=== PATIENT | female | born 1975 | race Caucasian/White ===

== ENCOUNTER → 2018-04-21 13:07 | Outpatient (POV) | payer BC, SELFPAY | PROVIDERS: Visit Provider Dermatology | DX: Z00.00 Encounter for general adult medical examination without abnormal findings (principal) ==

== ENCOUNTER → 2019-05-08 15:45 | Outpatient (CLI) | payer BC, SELFPAY ==
--- NOTE | 2019-05-08 15:53 | MM_ITS ---
PROCEDURE: MM DIG SCREENING MAMM BI W/CAD CLINICAL INDICATION: Routine Screening Mammogram baseline There is no personal or family history of breast cancer COMPARISON: No exams were available for comparison TECHNIQUE: Standard CC and MLO images were obtained. R2 CAD reviewed. FINDINGS: Moderate diffuse fibroglandular densities are seen in central portions of both breast. There is a possible asymmetric density deep within the left breast only definitely seen on the MLO view. Recommend patient return for spot compression MLO view and 90 degree view and spot compression CC view the central portion the breast there are no suspicious microcalcifications. IMPRESSION: Moderate breast density with possible asymmetric density deep within the left breast BI-RAD Category: 0 Need Additional Imaging Evaluation FOLLOW-UP: IMM Immediate Follow-up Recommended (A letter has been sent to the patient regarding results of the study.) Dictated by: Dr. Dudley Vasquez MD 05/10/2019 10:03 Signed by: <Electronically signed by Dr. Dudley Vasquez MD in [place]> 05/10/2019 10:03
== END ==
PROVIDERS: Visit Provider Nurse Practitioner Obstetrics & Gynecology
DX: Z12.31 Encounter for screening mammogram for malignant neoplasm of breast (principal)
CPT/HCPCS: 77067

== ENCOUNTER → 2019-05-16 13:25 | Outpatient (POV) | payer BC, SELFPAY | PROVIDERS: Visit Provider Dermatology | DX: Z00.00 Encounter for general adult medical examination without abnormal findings (principal) ==

== ENCOUNTER → 2019-05-17 12:54 | Outpatient (CLI) | payer BC, SELFPAY ==
--- NOTE | 2019-05-17 | US_ITS ---
This report is currently processing and should be available to review shortly.
--- NOTE | 2019-05-17 12:55 | MM_ITS ---
PROCEDURE: MM DIG MAMM DX UNILAT LT CAD CLINICAL INDICATION: Dx Mammogram- Left Breast Abnormal Mamm COMPARISON: MM DIG SCREENING MAMM BI W/CAD from 05/08/2019 US BREAST LT COMPLETE from 05/17/2019 TECHNIQUE: Problem solving views of the left breast along with left breast ultrasound FINDINGS: Average to dense fibroglandular tissue. On the spot compression MLO view there was a persistent asymmetric area of increased density which appeared less apparent on the focal spot compression view. The regional asymmetric density in the deep central left breast was less apparent on the spot view with some increased asymmetry slightly lateral to this area which may be due to overlying fibroglandular tissue. This area is difficult to image due to the deep location. Left breast ultrasound: 6 mm hypoechoic area at 3 o'clock near the nipple nonspecific may be due to fibroglandular tissue. No suspicious nodules are evident. IMPRESSION: Areas of asymmetry are probably benign. It is somewhat difficult images these areas due to the deep location. No sonographic abnormalities apparent. Recommend six-month follow-up BI-RAD Category: 3 Probably Benign Finding Short Term Follow-up FOLLOW-UP: 6M 6Month Follow-up the (A letter has been sent to the patient regarding results of the study.) Dictated by: Phil Toscano MD 05/19/2019 13:44 Signed by: <Electronically signed by Phil Toscano MD in [place]> 05/19/2019 13:48
== END ==
PROVIDERS: PCP Family Medicine; Visit Provider Nurse Practitioner Obstetrics & Gynecology
DX: R92.8 Other abnormal and inconclusive findings on diagnostic imaging of breast (principal)
CPT/HCPCS: 76641; 77065

== ENCOUNTER → 2020-07-08 07:54 | Outpatient (CLI) | payer BC, SELFPAY ==
--- NOTE | 2020-07-08 07:58 | MM_ITS ---
PROCEDURE: MM DIG SCREENING MAMM BI W/CAD Digital Breast Tomosynthesis Included CLINICAL INDICATION: screening xmg There is no personal or family history of breast cancer. COMPARISON: MG MM DIG SCREENING MAMM BI W/CAD from 05/08/2019 MG MM DIG MAMM DX UNILAT LT CAD from 05/17/2019 TECHNIQUE: Standard CC and MLO images and 3D Tomosynthesis was obtained. R2 CAD reviewed. FINDINGS: Moderate fibroglandular densities are seen in the central portions of both breasts. Findings are bilateral and symmetrical. There is no new or suspicious lesion in either breast and no suspicious microcalcifications. IMPRESSION: Fibrofatty parenchyma with no suspicious lesions seen BI-RAD Category: 1 Negative FOLLOW-UP: 1YR 1 Year Follow-up (A letter has been sent to the patient regarding results of the study.) Dictated by: Dr. Dudley Vasquez MD 07/08/2020 12:11 Dr. Dudley Vasquez MD in [place] 07/08/2020 12:11
== END ==
PROVIDERS: PCP Family Medicine; Visit Provider Nurse Practitioner Obstetrics & Gynecology
DX: Z12.31 Encounter for screening mammogram for malignant neoplasm of breast (principal)
CPT/HCPCS: 77063; 77067

== ENCOUNTER → 2020-07-09 13:10 | Outpatient (POV) | payer BC, SELFPAY | PROVIDERS: Visit Provider Dermatology | DX: Z00.00 Encounter for general adult medical examination without abnormal findings (principal) ==

== ENCOUNTER → 2020-07-15 08:59 | Outpatient (CLI) | payer BC, SELFPAY ==
--- NOTE | 2020-07-15 09:02 | US_ITS ---
APPROVED REPORT Exam Type: Lower Extremity Segmental Pressures Paying Teller: Padmini Niño RDCS Indications Numbness/Tingling Current Smoker History of Smoking Pressures/Indices Right Indices Left Indices Brachial 111.00 mmHg Brachial 114.00 mmHg Low Thigh 130.00 mmHg 1.14 Low Thigh 129.00 mmHg 1.13 Calf 121.00 mmHg 1.06 Calf 135.00 mmHg 1.18 Ankle(PT) 117.00 mmHg 1.03 Ankle(PT) 141.00 mmHg 1.24 Ankle(DP) 113.00 mmHg 0.99 Ankle(DP) 118.00 mmHg 1.04 Digit 73.00 mmHg 0.64 Digit 80.00 mmHg 0.70 Findings NORMAL WAVEFORMS NORMAL PULSES R RYNE 1.0 L RYNE 1.2 R TBI .6 L TBI .7 Conclusion NORMAL WAVEFORMS NORMAL PULSES R RYNE 1.0 L RYNE 1.2 R TBI .6 L TBI .7 Normal appearing resting noninvasive lower extremity arterial study. Electronically signed by : Phil Toscano MD 07/15/2020 13:40:10
== END ==
PROVIDERS: PCP Family Medicine; Visit Provider Nurse Practitioner Family
DX: I73.9 Peripheral vascular disease, unspecified (principal)
CPT/HCPCS: 93923

== ENCOUNTER 2020-09-26 20:03 | Emergency (ER) | payer BC, SELFPAY ==
[2020-09-26 20:03] VITALS: BP 128/89; PULSE 88; RESP 14; TEMP 36.8; O2SAT 98; BMI 22.3
--- NOTE | 2020-09-26 20:32 | HMH.EDUTC ---
[facility] [place] Clinical Impression: Exposure to COVID-19 virus, Viral syndrome Disposition: Home, Self-Care Condition on Discharge: Good Instructions: DI for COVID-19 (Suspected or Confirmed ), Preventing the Spread of Coronavirus Discharge Instructions Additional Instructions: *Monitor Temp, Over the counter Motrin or Tylenol as directed/as needed Tylenol every 4 hours and Motrin every 6 hours (as long as your family doctor has told you that you can take it) for fever or pain. and straight to ER if unable to lower temp less than 101.0 after medication given Follow up IMMEDIATELY for new or worsening symptoms or no Noticeable improvement over the next 48-72 hours. 911 for difficulty breathing or swallowing You were tested for today for COVID19 your test result should be back in the next 24-48 hours, you may call to the [facility] to see if your test results are back in the next 48 hours [phone] [facility] hours are 9am-9pm You was given a handout with instructions for Self Quarantine and Self isolation for while you wait on test results and what to do if they are positive If you are positive the Health Dept will be contacting you also Referrals: David Hopper MD [Primary Care Provider] - Time of Disposition: 20:35 Medical Decision Making - Medical Records Medical records reviewed: No: I reviewed the patient's medical records. - Ricco Inquiry Pt receiving controlled substance: No Vital Signs: 09/26/20 20:03 09/26/20 20:39 Temperature 98.3 F 98.3 F Temperature Source Oral Oral Pulse Rate 88 Pulse Rate [Right] 88 Respiratory Rate 14 14 Blood Pressure 128/89 Blood Pressure [Right Arm] 128/89 Blood Pressure Mean [Right Arm] 102 02 Sat by Pulse Oximetry 98 [facility] [place] HPI - General Stated complaint: Covid test Time Seen by Provider: 09/26/20 20:32 Description of Symptoms (Recalled from Triage Doc. by RN): pt request COVID test pt c/o of cough Tam HEENT Symptoms (Recalled from RN notes): No Resp Symptoms (Recalled from RN notes): Yes Skin Symptoms (Recalled from RN notes): No MS Symptoms (Recalled from RN notes): No Functional Status (Recalled from RN notes): wnl - History of Present Illness Provider Complaint: Her son has been diagnosed with covid-19 2 days ago. She states that since this morning she has felt very fatigued and had a low grade fever. - Related Data Home Medications Medication Instructions Recorded Confirmed atorvastatin 80 mg tablet 80 mg PO tab 08/12/20 08/12/20 multivitamin 1 cap PO DAILY 08/12/20 08/12/20 sertraline 50 mg tablet 50 mg PO tab 08/12/20 08/12/20 temazepam 15 mg capsule 15 mg PO cap 08/12/20 08/12/20 ustekinumab 45 mg/0.5 mL mg SQ 08/12/20 08/12/20 subcutaneous syringe Allergies Allergy/AdvReac Type Severity Reaction Status Date / Time No Known Allergies Allergy Verified 08/12/20 09:55 - Worker's Comp Is this a Worker's Comp case?: No Is this an [place] Worker's Comp?: No Is this a [place] Worker's Comp?: No [facility] History - Hepatitis A Screen Drug use history?: No High risk sexual behaviors?: No History of sexually transmitted infection?: No Currently employed?: No Childcare worker?: No Do you have indoor plumbing?: Yes Do you have electricity?: Yes Attestation statement:: This patient has been screened for Hepatitis A risk factors. 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
[2020-09-26 20:39] VITALS: BP 128/89; PULSE 88; RESP 14; TEMP 36.8
== END 2020-09-26 20:39 | disposition home or self-care (01) ==
PROVIDERS: Emergency Provider Nurse Practitioner Family; PCP Family Medicine
DX: Z20.822 Contact with and (suspected) exposure to COVID-19 (principal); B34.9 Viral infection, unspecified; J45.909 Unspecified asthma, uncomplicated; E78.5 Hyperlipidemia, unspecified; F17.210 Nicotine dependence, cigarettes, uncomplicated; Z79.899 Other long term (current) drug therapy
CPT/HCPCS: 99202; G0463; U0003

== ENCOUNTER → 2021-06-30 11:59 | Outpatient (CLI) | payer BC, SELFPAY | PROVIDERS: PCP Family Medicine; Visit Provider Nurse Practitioner | DX: Z20.822 Contact with and (suspected) exposure to COVID-19 (principal); U07.1 COVID-19 | CPT/HCPCS: C9803; U0003; U0005 ==

== ENCOUNTER → 2021-09-15 09:42 | Outpatient (CLI) | payer BC, SELFPAY | PROVIDERS: PCP Family Medicine; Visit Provider Nurse Practitioner | DX: Z20.822 Contact with and (suspected) exposure to COVID-19 (principal) | CPT/HCPCS: C9803; U0003; U0005 ==

== ENCOUNTER → 2021-12-30 15:57 | Outpatient (POV) | payer BC, SELFPAY | PROVIDERS: Visit Provider Dermatology | DX: Z00.00 Encounter for general adult medical examination without abnormal findings (principal) ==

== ENCOUNTER 2022-04-02 08:42 | Emergency (ER) | payer BC, SELFPAY ==
[2022-04-02] VITALS (7 sets, daily range): BP systolic 99–120; BP diastolic 60–84; PULSE 76–94; RESP 16–18; TEMP 36.6–36.8; O2SAT 94–98; BMI 22.8
--- NOTE | 2022-04-02 08:51 | PC.NURSE ---
JOE BASS at
--- NOTE | 2022-04-02 08:54 | CT_ITS ---
FINAL REPORT TECHNIQUE: Axial CT images were performed through the head. Coronal reformatted images were submitted. This study was performed with techniques to keep radiation doses as low as reasonably achievable (ALARA). Individualized dose reduction techniques using automated exposure control or adjustment of mA and/or kV according to the patient's size were employed. CLINICAL HISTORY: Fall, CHI, +LOC FINDINGS: The ventricles are normal in size. There is no evidence of hemorrhage. There is no mass or edema identified. There is no abnormal extra-axial fluid seen. There is mild mucoperiosteal thickening in the left maxillary sinus. There is no acute osseous abnormality. IMPRESSION: No acute intracranial process. Reviewed, Interpreted and Dictated by Didier Rose MD Transcribed by Pedro Fisher Authenticated and [facility]
--- NOTE | 2022-04-02 08:55 | HMH.EDFALL ---
ED Disposition Clinical Impression: Concussion with loss of consciousness Qualifiers: Encounter type: initial encounter Qualified Code(s): S06.0X9A - Concussion with loss of consciousness of unspecified duration, initial encounter Disposition: Home, Self-Care Condition on Discharge: Good Instructions: DI for Concussion, Ondansetron, Ibuprofen Referrals: Lukasz Alvarado MD [Primary Care Provider] - Time of Disposition: 10:32 - Critical Care Critical Care Time: No Attestation: On , the high probability of a clinically significant, sudden or life threatening deterioration of the following system(s) required my full and direct attention, intervention and personal management. The time I documented below is in addition to time spent performing reported procedures but includes the following listed in this critical care notation. Medical Decision Making - Medical Records Medical records reviewed: Yes: I reviewed the patient's medical records. - Ricco Inquiry Pt receiving controlled substance: No Vital Signs: 04/02/22 08:43 04/02/22 09:00 04/02/22 09:11 Temperature 98.2 F Temperature Source Oral Pulse Rate 87 86 Pulse Rate [Right Radial] 94 H Respiratory Rate 18 Blood Pressure 113/77 117/76 Blood Pressure [Right Arm] 120/78 Blood Pressure Mean 86 84 Blood Pressure Mean [Right Arm] 92 Blood Pressure Source [Right Arm] Automatic Cuff Blood Pressure Position [Right Arm] Sitting 02 Sat by Pulse Oximetry 95 95 96 Oxygen Delivery Method Room Air 04/02/22 09:30 Temperature Temperature Source Pulse Rate 76 Pulse Rate [Right Radial] Respiratory Rate Blood Pressure 101/68 L Blood Pressure [Right Arm] Blood Pressure Mean 74 Blood Pressure Mean [Right Arm] Blood Pressure Source [Right Arm] Blood Pressure Position [Right Arm] 02 Sat by Pulse Oximetry 94 L Oxygen Delivery Method - Lab Data Lab results reviewed: Yes: I reviewed the patient's lab results. Lab Results 04/02/22 08:53: WBC 6.0, RBC 5.10, Hgb 15.1, Hct 46.4, MCV 91.0, MCH 29.6, MCHC 32.5, RDW 13.5, Plt Count 333, MPV 8.2, Neut % (Auto) 55.3, Lymph % (Auto) 33.6, [place] % (Auto) 7.1, Eos % (Auto) 2.9, Baso % (Auto) 1.1, Neut # (Auto) 3.3, Lymph # (Auto) 2.0, [place] # (Auto) 0.4, Eos # (Auto) 0.2, Baso # (Auto) 0.1 04/02/22 08:53: Sodium 137, Potassium 3.9, Chloride 103, Carbon Dioxide 31 H, Anion Gap 6.9, BUN 7, Creatinine 0.60, Estimated Creat Clear 114, Estimated GFR 107, Est GFR ( Amer) 130, Glucose 102 H, Calcium 9.2, Total Bilirubin 0.2, AST 32, ALT 30, Alkaline Phosphatase 143 H, Total Protein 7.0, Albumin 4.0, Globulin 3.0, Albumin/Globulin Ratio 1.3 04/02/22 08:53: Serum HCG, Qual Negative Result diagrams: 04/02/22 08:53 04/02/22 08:53 Orders (Tests/Meds): ED MEDICATIONS Discontinued Medications Generic Name Dose Route Start Last Admin Trade Name Freq PRN Reason Stop Dose Admin Ondansetron HCl 4 mg 04/02/22 08:54 04/02/22 09:18 Ondansetron 4mg Odt SL 04/02/22 08:55 Not Given ONCE ONE Ondansetron HCl 4 mg 04/02/22 09:03 04/02/22 09:06 Ondansetron 4mg/2ml Vial IV 04/02/22 09:04 4 mg ONCE ONE Administration - Reevaluation(s) Time: 10:31 (no acute findings on imaging, clinical picture c/w mild concussion) Fall HPI - General Chief Complaint: Fall Stated Complaint: ao fall 04/02, head pain Time Seen by Provider: 04/02/22 08:50 Mode of Arrival: Ambulatory Source of Information: Patient Limitations: No Limitations - History of Present Illness HPI Narrative: 46-year-old female, no history of prior head trauma, not on anticoagulant, no known bleeding diatheses, presents status post mechanical fall where she tripped and fell in her bathroom, fell backwards struck the back of her head with positive loss of consciousness for unknown amount of time. She awoke spontaneously, event occurred just prior to arrival, she was ambulatory into the emergency department. She does repor
--- NOTE | 2022-04-02 08:56 | PC.NURSE ---
notified rad of CT orders, spoke with Schuyler
[2022-04-02 09:05] LABS: Basophils # 0.1 K/mm3 (0-0.2); Basophils % 1.1 % (0.1-2.0); Eosinophils # 0.2 K/mm3 (0.0-0.4); Eosinophils % 2.9 % (0.1-12.0); Hematocrit 46.4 % (37.0-47.0); Hemoglobin 15.1 g/dL (12.2-16.2); Lymphocytes % 33.6 % (10-50); Mean Corpuscular HGB Conc 32.5 g/dL (31.8-35.4); Mean Corpuscular Hemoglobin 29.6 pg (27.0-31.2); Mean Platelet Volume 8.2 fl (7.4-10.4); Monocytes # 0.4 K/mm3 (0.1-1.0); Monocytes % 7.1 % (1.7-9.3); Neutrophils # 3.3 K/mm3 (1.8-7.8); Neutrophils % 55.3 % (37.0-80.0); Platelet Count 333 K/mm3 (142-424); Red Cell Distribution Width 13.5 % (11.5-17.5)
--- NOTE | 2022-04-02 09:06 | PC.NURSE ---
pt to CT via wheelchair, pt medicated for nausea prior to CT, pt began more nauseated when she tried to get up from the stretcher.
[2022-04-02 09:10] LABS: Alanine Aminotransferase 30 U/L (12-78); Albumin/Globulin Ratio 1.3 (1.1-1.8); Alkaline Phosphatase 143 U/L (38-126); Anion Gap 6.9 mEq/L (5-15); Aspartate Amino Transferase 32 U/L (14-36); Bilirubin,Total 0.2 mg/dl (0.2-1.3); Blood Urea Nitrogen 7 mg/dl (7-17); Calcium 9.2 mg/dl (8.4-10.2); Carbon Dioxide 31 mmol/L (22.0-30.0); Chloride 103 mmol/L (98-107); Creatinine Clearance Estimated 114 mL/min (50-200); Estimated Glomerular Filt Rate 107 ml/min (>60); GFR (African American) 130 ML/MIN (>60); Glucose 102 mg/dl (74-100); Potassium 3.9 mmoL/L (3.5-5.1); Sodium 137 mmol/L (136-145)
--- NOTE | 2022-04-02 09:20 | PC.NURSE ---
Pt returned from CT
--- NOTE | 2022-04-02 09:20 | PC.NURSE ---
family at the bedside
[2022-04-02 09:35] LABS: HCG Qualitative, Serum Negative (Negative)
--- NOTE | 2022-04-02 09:36 | PC.NURSE ---
checked on pt at this time, pt laying on her side at this time, states no needs at this time. Pt offered blanket, pt declined. Pt at bs, will continue to monitor
== END 2022-04-02 11:06 | disposition home or self-care (01) ==
PROVIDERS: Emergency Provider Emergency Medicine; PCP Family Medicine
DX: S06.0X9A Concussion with loss of consciousness of unspecified duration, initial encounter (principal); W01.0XXA Fall on same level from slipping, tripping and stumbling without subsequent striking against object, initial encounter; Y92.012 Bathroom of single-family (private) house as the place of occurrence of the external cause
CPT/HCPCS: 70450; 80053; 84703; 85025; 96374; 99284; J2405

== ENCOUNTER → 2022-05-11 12:55 | Outpatient (CLI) | payer BC, SELFPAY ==
[2022-05-14 18:09] LABS: QuantiFERON-TB Gold Plus Negative (Negative)
== END ==
PROVIDERS: PCP Family Medicine; Visit Provider Dermatology
DX: L40.0 Psoriasis vulgaris (principal); Z79.899 Other long term (current) drug therapy
CPT/HCPCS: 36415; 86480

== ENCOUNTER → 2022-09-23 10:47 | Outpatient (CLI) | payer BC, SELFPAY ==
[2022-09-23 12:39] LABS: Adenovirus,PCR Not Detected (NotDetected); Bordetella Pertussis Not Detected (NotDetected); Chlamydophila Pneumoniae, PCR Not Detected (NotDetected); Coronavirus 19, PCR Not Detected (NotDetected); Coronavirus 229E Not Detected (NotDetected); Coronavirus NL63 Not Detected (NotDetected); Coronavirus OC43 Not Detected (NotDetected); Coronovirus HKU1,PCR Not Detected (NotDetected); Human Metapneumovirus Not Detected (NotDetected); Influenza A, PCR Not Detected (NotDetected); Influenza AH1, 2009 Not Detected (NotDetected); Influenza AH1, PCR Not Detected (NotDetected); Influenza AH3,PCR Not Detected (NotDetected); Influenza B, PCR Not Detected (NotDetected); Mycoplasma Pneumoniae, PCR Not Detected (NotDetected); Parainfluenza 1, PCR Not Detected (NotDetected); Parainfluenza 2, PCR Not Detected (NotDetected); Parainfluenza 3, PCR Not Detected (NotDetected); Parainfluenza 4, PCR Not Detected (NotDetected); Respiratory Syncytial Virus Not Detected (NotDetected); Rhinovirus/Enterovirus Not Detected (NotDetected)
== END ==
PROVIDERS: PCP Family Medicine; Visit Provider Family Medicine
DX: J06.9 Acute upper respiratory infection, unspecified (principal); R05.9 Cough, unspecified
CPT/HCPCS: 87581; 87632; 87798; C9803; U0003; U0005

== ENCOUNTER → 2022-09-23 11:02 | Outpatient (CLI) | payer BC, SELFPAY ==
--- NOTE | 2022-09-23 11:08 | XR_ITS ---
FINAL REPORT CLINICAL HISTORY: Cough COMPARISON: None FINDINGS: Two views of the chest show lungs to be clear. Pulmonary vascularity is normal. Heart and mediastinum are unremarkable. No pleural effusion is present. IMPRESSION: No active disease. Reviewed, Interpreted and Dictated by Juancho Kent MD Transcribed by Vanessa Hernandez Authenticated and [facility]
== END ==
PROVIDERS: PCP Family Medicine; Visit Provider Family Medicine
DX: R05.9 Cough, unspecified (principal)
CPT/HCPCS: 71046

== ENCOUNTER → 2022-10-05 16:21 | Outpatient (CLI) | payer BC, SELFPAY ==
--- NOTE | 2022-10-05 16:22 | MM_ITS ---
PROCEDURE INFORMATION: Exam: MG Bilateral Screening 3D Mammography Exam date and time: 10/05/2022 4:12 PM Age: 46 years old Clinical indication: Screening examination TECHNIQUE: Imaging protocol: Bilateral Screening tomosynthesis and 2D mammography including computer-aided detection (CAD) when performed. COMPARISON: 1. MG MM DIG SCREENING MAMM BI W/CAD 07/08/2020 8:08 AM 2. MG MM DIG MAMM DX UNILAT LT CAD 05/17/2019 1:12 PM FINDINGS: MAMMOGRAPHY: Breast composition: The breasts are heterogeneously dense, which may obscure small masses. Mass: None. Architectural distortion: None. Calcifications: No suspicious calcifications. Asymmetric density: None. Skin thickening: None. Axillary adenopathy: None. IMPRESSION: No mammographic evidence of malignancy. Annual screening is recommended unless otherwise clinically indicated. ASSESSMENT: BI-RADS Category 1: Negative
== END ==
PROVIDERS: PCP Family Medicine; Visit Provider Family Medicine
DX: Z12.31 Encounter for screening mammogram for malignant neoplasm of breast (principal)
CPT/HCPCS: 77063; 77067

== ENCOUNTER → 2022-12-25 14:31 | Outpatient (POV) | payer BC, SELFPAY | PROVIDERS: Visit Provider Dermatology | DX: Z00.00 Encounter for general adult medical examination without abnormal findings (principal) ==

== ENCOUNTER → 2023-01-26 14:57 | Outpatient (POV) | payer BC, SELFPAY | PROVIDERS: Visit Provider Dermatology | DX: Z00.00 Encounter for general adult medical examination without abnormal findings (principal) ==

== ENCOUNTER → 2023-02-22 08:38 | Outpatient (CLI) | payer BC, SELFPAY ==
--- NOTE | 2023-02-22 08:41 | MR_ITS ---
FINAL REPORT TECHNIQUE: Multiplanar and multisequence imaging of the brain was obtained before and after contrast administration. CLINICAL HISTORY: encephalopathy. MEMORY LOSS FINDINGS: The gyri and sulci are within normal limits for age. There is no mass effect or midline shift. Signal intensity is normal. No hydrocephalus. The cerebellum and brainstem have an unremarkable appearance. There are no areas of restricted diffusion on diffusion weighted images to suggest acute infarct. Soft tissues are without acute abnormality. No pathologic contrast enhancement is identified. IMPRESSION: No acute intracranial abnormality and no pathologic contrast enhancement. Reviewed, Interpreted and Dictated by Yasmin Pierre MD Transcribed by Ruth Trotter Authenticated and [facility]
== END ==
PROVIDERS: PCP Family Medicine; Visit Provider Nurse Practitioner Family
DX: G93.40 Encephalopathy, unspecified (principal); F41.8 Other specified anxiety disorders; G25.81 Restless legs syndrome; G47.00 Insomnia, unspecified; R29.2 Abnormal reflex; R53.83 Other fatigue; R73.9 Hyperglycemia, unspecified; R06.83 Snoring; Z72.0 Tobacco use
CPT/HCPCS: 70553; A9576

== ENCOUNTER → 2023-03-04 13:06 | Outpatient (CLI) | payer BC, SELFPAY | PROVIDERS: PCP Nurse Practitioner Family; Visit Provider Nurse Practitioner Family | DX: G47.33 Obstructive sleep apnea (adult) (pediatric) (principal); R06.83 Snoring; G25.81 Restless legs syndrome; G47.00 Insomnia, unspecified; R53.83 Other fatigue | CPT/HCPCS: G0399 ==

== ENCOUNTER → 2023-03-17 10:29 | Outpatient (CLI) | payer BC, SELFPAY ==
--- NOTE | 2023-03-17 10:37 | XR_ITS ---
FINAL REPORT CLINICAL HISTORY: Tobacco abuse, cognitive complaints FINDINGS: TWO VIEW CHEST The heart size is normal. The mediastinum is normal. The lungs are clear. There is no pneumothorax. IMPRESSION: No acute cardiopulmonary process. Reviewed, Interpreted and Dictated by John Guthrie III, MD Transcribed by Vonnie Christensen Authenticated and [facility]
[2023-03-17 11:36] LABS: Basophils % 0.6 % (0.1-2.0); Eosinophils # 0.2 K/mm3 (0.0-0.4); Eosinophils % 2.7 % (0.1-12.0); Hematocrit 45.6 % (37.0-47.0); Hemoglobin 14.8 g/dL (12.2-16.2); Lymphocytes # 2.3 K/mm3 (0.7-4.5); Lymphocytes % 36.7 % (10-50); Mean Corpuscular HGB Conc 32.4 g/dL (31.8-35.4); Mean Corpuscular Hemoglobin 28.4 pg (27.0-31.2); Mean Corpuscular Volume 87.8 fl (81-99); Mean Platelet Volume 9.1 fl (7.4-10.4); Monocytes # 0.4 K/mm3 (0.1-1.0); Monocytes % 5.8 % (1.7-9.3); Neutrophils # 3.4 K/mm3 (1.8-7.8); Neutrophils % 54.2 % (37.0-80.0); Platelet Count 309 K/mm3 (142-424); Red Cell Distribution Width 13.1 % (11.5-17.5); White Blood Count 6.3 K/mm3 (4.8-10.8)
[2023-03-17 11:43] LABS: Hemoglobin A1C 5.5 % (4.0-6.0)
[2023-03-17 12:34] LABS: Chloride 100 mmol/L (98-107); Potassium 3.9 mmoL/L (3.5-5.1); Sodium 140 mmol/L (136-145)
[2023-03-17 12:36] LABS: Blood Urea Nitrogen 6 mg/dl (7-17); Estimated Glomerular Filt Rate 89 ml/min (>60); GFR (African American) 108 ML/MIN (>60)
[2023-03-17 12:37] LABS: Alanine Aminotransferase 30 U/L (12-78); Albumin Level 4.2 g/dl (3.5-5.0); Albumin/Globulin Ratio 1.5 (1.1-1.8); Alkaline Phosphatase 133 U/L (38-126); Anion Gap 10.9 mEq/L (5-15); Aspartate Amino Transferase 37 U/L (14-36); Bilirubin,Total 0.3 mg/dl (0.2-1.3); Calcium 9.1 mg/dl (8.4-10.2); Carbon Dioxide 33 mmol/L (22.0-30.0); Globulin 2.8 g/dL (1.3-3.2); Glucose 73 mg/dl (74-100)
[2023-03-17 13:11] LABS: Ferritin 25.9 ng/ml (6.24-137)
[2023-03-17 13:33] LABS: Thyroid Stimulating Hormone 5.65 uIU/mL (0.465-4.68)
[2023-03-17 14:08] LABS: Vitamin B12 411 pg/mL (239-931)
[2023-03-17 14:11] LABS: Folate 6.06 ng/mL
[2023-03-18 11:24] LABS: Rapid Plasma Reagin Ab Titer Non Reactive (NonRea<1:1)
[2023-03-20 17:33] LABS: Vitamin B1 112.3 nmol/L (66.5-200.0)
[2023-03-23 12:56] LABS: Free Thyroxine Index 2.4 ug/dL (5.93-13.13); T4 (Thyroxine) 8.3 ug/dl (5.53-11.0); Triiodothryronine (T3) Uptake 29 % (23.5-40.5)
[2023-03-23 14:48] LABS: Thyroid Stimulating Hormone 5.58 uIU/mL (0.465-4.68)
[2023-04-08 00:12] LABS: Antinuclear Antibodies (ANA) Negative
== END ==
LOC: LAB 10:30
PROVIDERS: PCP Nurse Practitioner Family; Visit Provider Nurse Practitioner Family
DX: G93.40 Encephalopathy, unspecified (principal); R73.9 Hyperglycemia, unspecified; F41.8 Other specified anxiety disorders; R29.2 Abnormal reflex; R53.83 Other fatigue; G25.81 Restless legs syndrome; G47.00 Insomnia, unspecified; R06.83 Snoring; Z72.0 Tobacco use
CPT/HCPCS: 36415; 71046; 80053; 82607; 82728; 82746; 83036; 84425; 84436; 84443; 84479; 85025; 86038; 86225; 86235; 86593

== ENCOUNTER → 2023-05-11 13:03 | Outpatient (POV) | payer BC, SELFPAY | PROVIDERS: Visit Provider Dermatology | DX: Z00.00 Encounter for general adult medical examination without abnormal findings (principal) ==

== ENCOUNTER → 2023-05-26 14:37 | Outpatient (CLI) | payer BC, SELFPAY ==
[2023-05-26 16:23] LABS: Chloride 100 mmol/L (98-107); Potassium 3.6 mmoL/L (3.5-5.1); Sodium 141 mmol/L (136-145)
[2023-05-26 16:25] LABS: Alanine Aminotransferase 160 U/L (12-78); Aspartate Amino Transferase 75 U/L (14-36); Blood Urea Nitrogen 8 mg/dl (7-17); Estimated Glomerular Filt Rate 77 ml/min (>60); GFR (African American) 93 ML/MIN (>60)
[2023-05-26 16:26] LABS: Albumin Level 3.9 g/dl (3.5-5.0); Albumin/Globulin Ratio 1.2 (1.1-1.8); Alkaline Phosphatase 162 U/L (38-126); Anion Gap 10.6 mEq/L (5-15); Bilirubin,Total 0.6 mg/dl (0.2-1.3); Calcium 9.7 mg/dl (8.4-10.2); Carbon Dioxide 34 mmol/L (22.0-30.0); Globulin 3.2 g/dL (1.3-3.2); Glucose 104 mg/dl (74-100); Total Protein,Serum 7.1 g/dl (6.3-8.2)
[2023-05-26 16:52] LABS: Basophils % 0.4 % (0.1-2.0); Eosinophils # 0.1 K/mm3 (0.0-0.4); Eosinophils % 0.9 % (0.1-12.0); Hematocrit 46.1 % (37.0-47.0); Hemoglobin 15.7 g/dL (12.2-16.2); Lymphocytes # 2.8 K/mm3 (0.7-4.5); Lymphocytes % 30.1 % (10-50); Mean Corpuscular Hemoglobin 29.2 pg (27.0-31.2); Mean Platelet Volume 10.3 fl (7.4-10.4); Monocytes # 0.6 K/mm3 (0.1-1.0); Monocytes % 6.2 % (1.7-9.3); Neutrophils # 5.8 K/mm3 (1.8-7.8); Neutrophils % 62.4 % (37.0-80.0); Platelet Count 318 K/mm3 (142-424); Red Blood Count 5.36 M/mm3 (4.20-5.40); Red Cell Distribution Width 13.6 % (11.5-17.5); White Blood Count 9.3 K/mm3 (4.8-10.8)
[2023-05-29 11:34] LABS: QuantiFERON-TB Gold Plus Negative (Negative)
[2023-05-31 12:01] LABS: Free T4 (Free Thyroxine) 1.33 ng/dl (0.78-2.19)
[2023-06-02 16:29] LABS: Alkaline Phosphatase 152 IU/L (44-121); Bone Fraction: 27 % (14-68); Intestinal Frac.: 0 % (0-18); Liver Fraction: 73 % (18-85)
== END ==
PROVIDERS: PCP Nurse Practitioner Family; Visit Provider Dermatology
DX: E03.9 Hypothyroidism, unspecified (principal); R74.8 Abnormal levels of other serum enzymes; E78.5 Hyperlipidemia, unspecified; F41.8 Other specified anxiety disorders
CPT/HCPCS: 36415; 80053; 84075; 84080; 84439; 84443; 85025; 86480

== ENCOUNTER 2023-06-06 18:51 | Emergency (ER) | payer BC, SELFPAY ==
[2023-06-06] VITALS (8 sets, daily range): BP systolic 131–164; BP diastolic 90–107; PULSE 75–99; RESP 17–19; TEMP 36.8–36.9; O2SAT 94–98; BMI 20.9
--- NOTE | 2023-06-06 | ECG_ITS ---
APPROVED REPORT Exam: Resting ECG HR:76 bpm ECG Measurements Heart Rate 76 AXES OH 142 P 73 QRSd 86 QRS 78 QT 374 T 67 QTc 405 Conclusion SINUS RHYTHM WITH SINUS ARRHYTHMIA NORMAL ECG UNCONFIRMED REPORT Electronically signed by : David Farfan MD 06/07/2023 20:19:03
--- NOTE | 2023-06-06 19:22 | ECG_ITS ---
APPROVED REPORT Exam: Resting ECG HR:111 bpm ECG Measurements Heart Rate 111 AXES PA 137 P 73 QRSd 88 QRS 78 QT 333 T 71 QTc 398 Conclusion SINUS TACHYCARDIA NONSPECIFIC ST & T-WAVE ABNORMALITY ABNORMAL RHYTHM ECG UNCONFIRMED REPORT Electronically signed by : David Farfan MD 06/07/2023 20:19:12
[2023-06-06 19:35] LABS: Basophils # 0.1 K/mm3 (0-0.2); Basophils % 0.7 % (0.1-2.0); Eosinophils # 0.1 K/mm3 (0.0-0.4); Eosinophils % 1.6 % (0.1-12.0); Hemoglobin 15.6 g/dL (12.2-16.2); Lymphocytes # 2.8 K/mm3 (0.7-4.5); Lymphocytes % 34.7 % (10-50); Mean Corpuscular HGB Conc 32.4 g/dL (31.8-35.4); Mean Corpuscular Hemoglobin 28.3 pg (27.0-31.2); Mean Corpuscular Volume 87.2 fl (81-99); Monocytes # 0.4 K/mm3 (0.1-1.0); Monocytes % 5.3 % (1.7-9.3); Neutrophils # 4.6 K/mm3 (1.8-7.8); Neutrophils % 57.7 % (37.0-80.0); Platelet Count 346 K/mm3 (142-424); Red Blood Count 5.51 M/mm3 (4.20-5.40); Red Cell Distribution Width 13.5 % (11.5-17.5)
[2023-06-06 19:37] LABS: Chloride 101 mmol/L (98-107); Potassium 3.2 mmoL/L (3.5-5.1); Sodium 140 mmol/L (136-145)
[2023-06-06 19:40] LABS: Alanine Aminotransferase 48 U/L (12-78); Albumin/Globulin Ratio 1.2 (1.1-1.8); Alkaline Phosphatase 135 U/L (38-126); Anion Gap 12.2 mEq/L (5-15); Aspartate Amino Transferase 52 U/L (14-36); Bilirubin,Total 0.4 mg/dl (0.2-1.3); Blood Urea Nitrogen 8 mg/dl (7-17); Carbon Dioxide 30 mmol/L (22.0-30.0); Creatinine Clearance Estimated 91 mL/min (50-200); Estimated Glomerular Filt Rate 89 ml/min (>60); GFR (African American) 108 ML/MIN (>60); Globulin 3.3 g/dL (1.3-3.2); Glucose 165 mg/dl (74-100); Total Protein,Serum 7.3 g/dl (6.3-8.2)
[2023-06-06 19:41] LABS: Magnesium 2.1 mg/dl (1.6-2.3)
--- NOTE | 2023-06-06 19:53 | XR_ITS ---
PROCEDURE INFORMATION: Exam: XR Chest Exam date and time: 06/06/2023 8:12 PM Age: 47 years old Clinical indication: Shortness of breath; Additional info: Dyspnea TECHNIQUE: Imaging protocol: Radiologic exam of the chest. Views: 1 view. COMPARISON: CR XR CHEST 2V 03/17/2023 10:49 AM FINDINGS: Lungs: Unremarkable. No consolidation. Pleural spaces: Unremarkable. No pleural effusion. No pneumothorax. Heart/Mediastinum: Unremarkable. No cardiomegaly. Bones/joints: Unremarkable for patient age. IMPRESSION: No acute findings.
[2023-06-06 19:54] LABS: Troponin I < 0.01 ng/ml (0.00-0.034)
[2023-06-06 20:10] LABS: D-Dimer 0.97 ug/mL (0.0-0.5)
--- NOTE | 2023-06-06 20:38 | HMH.EDGENADL ---
Discharge Plan Disposition Patient Disposition: Still a Patient Prescriptions Prescriptions: New ondansetron 4 mg tablet,disintegrating 4 mg PO Q6H PRN (Reason: nausea and vomiting) 5 Days Qty: 20 0RF No Action Tremfya 100 mg/mL auto-injector 100 mg SQ Q8W atorvastatin 80 mg tablet 80 mg PO HS Patient Comments: TAKE ONE TABLET BY MOUTH EVERY DAY paroxetine HCl [Paxil] 10 mg tablet 10 mg PO QHS levothyroxine [Synthroid] 25 mcg tablet 25 mcg PO DAILY Referrals Follow up/Referrals: Byron Castro MD [Staff Physician] - See instructions Lilly Warren APRN [Primary Care Provider] - See instructions Activity Restrictions/Add. Instructions Additional Instructions/Restrictions: No evidence of any cardiopulmonary emergency given the fact that you had significant improvement with GI cocktail and have had significant weight loss and have an endoscopy scheduled soon I suspect you may have esophageal dysmotility in the setting of underlying rheumatologic conditions and recommend that you follow-up with a area sales manager outpatient in addition to seeing a research assistant member and having your endoscopy as previously scheduled. Clinical Impressions Clinical Impression: Atypical chest pain Instructions Patient Instructions: DI for Atypical Chest Pain Discharge ED Provider: Christine Hernandez General Adult HPI General Chief complaint: Chest Pain Stated complaint: cp Time Seen by Provider: 06/06/23 19:39 Mode of Arrival: Ambulatory Source of Information: Patient Limitations: No Limitations Description of Symptoms (Recalled from ER Triage Doc. by RN): Presents to ED with c/o left sided chest pain that radiates into her arm since 1700 as well as V/D for 3 months with a 23 lbs weight loss. Reports she has a colonoscopy/endoscopy scheduled for wednesday as well as an US of her [facility] for elevated liver enzymes. Denies fever or any cardiac hx. 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 intake and some side effects secondary to starting biologic several months ago she was previously healthy prior to this. She presents today right after eating with some chest discomfort that radiates into her left shoulder. This is nonexertional she had no diaphoresis or dyspnea associated with this no pleuritic component no lower extremity swelling no history of DVT or PE she has no history of cardiac problems has not had a left heart cath or stress test in the past her symptoms have been ongoing for the last hour at this point. Related Data Home Medications Medication Instructions Recorded Confirmed guselkumab 100 mg/mL subcutaneous 100 mg SQ Q8W Psoriasis 05/26/23 06/06/23 auto-injector (Tremfya) atorvastatin 80 mg tablet 80 mg PO HS High Cholesterol 06/06/23 06/06/23 levothyroxine 25 mcg tablet 25 mcg PO DAILY Hypothyroid 06/06/23 06/06/23 (Synthroid) paroxetine HCl 10 mg tablet (Paxil) 10 mg PO QHS Depression 06/06/23 06/06/23 Previous Rx's Medication Instructions Recorded ondansetron 4 mg disintegrating 4 mg PO Q6H PRN nausea and 06/06/23 tablet vomiting 5 days #20 tabs Allergies Allergy/AdvReac Type Severity Reaction Status Date / Time No Known Allergies Allergy Verified 06/06/23 19:[address] [facility] Disclaimer: The information contained in this section may have been updated after the patient was seen, as this information can be updated by other users. Medical History (Updated 06/06/23 @ 20:45 by Christine Hernandez MD) Concussion with loss of consciousness Elevated TSH Exposure to COVID-19 virus Hyperglycemia Hypoglycemia Memory impairment Oral candidiasis Upper respiratory infection Viral syndrome Wheezing Family History Other Cancer Coronary artery disease Heart attack Hypertension Social History (Reviewed
[2023-06-06 22:46] LABS: Troponin I < 0.01 ng/ml (0.00-0.034)
== END 2023-06-06 22:52 | disposition home or self-care (01) ==
PROVIDERS: Emergency Provider Student in an Organized Health Care Education/Training Program; PCP Nurse Practitioner Family
DX: R07.89 Other chest pain (principal); M25.512 Pain in left shoulder; R11.10 Vomiting, unspecified; R19.7 Diarrhea, unspecified; R63.4 Abnormal weight loss; F17.210 Nicotine dependence, cigarettes, uncomplicated; R00.0 Tachycardia, unspecified
CPT/HCPCS: 36415; 71045; 80053; 83735; 84484; 85025; 85378; 93005; 96361; 96374; 99285; J2405

== ENCOUNTER → 2023-06-14 09:59 | Outpatient (CLI) | payer BC, SELFPAY ==
--- NOTE | 2023-06-14 09:59 | US_ITS ---
FINAL REPORT TECHNIQUE: Sonographic images of the abdomen were obtained in all four quadrants. CLINICAL HISTORY: elevated live enzymes COMPARISON: None FINDINGS: LIVER: Homogeneous. No focal hepatic lesion or intrahepatic biliary dilatation. The portal vein is patent with normal directional flow. GALLBLADDER: No gallstones. No pericholecystic fluid collection or gallbladder wall thickening. The common duct measures 2 mm. This is within normal limits for age. PANCREAS: Unremarkable. RIGHT KIDNEY: 10.4 cm. No hydronephrosis, mass or stone. LEFT KIDNEY: 10.6 cm. No hydronephrosis, mass or stone. SPLEEN: 9.4 cm. No focal splenic lesion. AORTA/IVC: No abdominal aortic aneurysm. Visualized IVC within normal limits. OTHER: No ascites. IMPRESSION: Unremarkable ultrasound of the upper abdomen. Reviewed, Interpreted and Dictated by Yasmin Pierre MD Transcribed by Niecy Izaguirre Authenticated and [facility]
== END ==
PROVIDERS: PCP Nurse Practitioner Family; Visit Provider Nurse Practitioner Family
DX: R74.8 Abnormal levels of other serum enzymes (principal)
CPT/HCPCS: 76700

== ENCOUNTER → 2023-07-05 16:55 | Outpatient (CLI) | payer BC, SELFPAY ==
[2023-07-05 16:09] LABS: Alanine Aminotransferase 29 U/L (12-78); Albumin Level 4.6 g/dl (3.5-5.0); Albumin/Globulin Ratio 1.2 (1.1-1.8); Alkaline Phosphatase 151 U/L (38-126); Anion Gap 13.8 mEq/L (5-15); Aspartate Amino Transferase 37 U/L (14-36); Bilirubin,Total 0.2 mg/dl (0.2-1.3); Blood Urea Nitrogen 7 mg/dl (7-17); Calcium 9.5 mg/dl (8.4-10.2); Carbon Dioxide 32 mmol/L (22.0-30.0); Chloride 98 mmol/L (98-107); Chol/HDL Ratio 6.3 (1-3.5); Cholesterol 277 mg/dl (140-200); Estimated Glomerular Filt Rate 107 ml/min (>60); GFR (African American) 129 ML/MIN (>60); Globulin 3.7 g/dL (1.3-3.2); Glucose 75 mg/dl (74-100); HDL Cholesterol 44 mg/dl (40-60); Potassium 3.8 mmoL/L (3.5-5.1); Sodium 140 mmol/L (136-145); Total Protein,Serum 8.3 g/dl (6.3-8.2)
[2023-07-05 16:11] LABS: Triglycerides 444 mg/dl (30-150)
[2023-07-05 16:28] LABS: Direct LDL Cholesterol 130.85 mg/dL (100-129)
[2023-07-05 16:29] LABS: 25-OH Vitamin D, Total 28.5 ng/mL (30-100); Free T4 (Free Thyroxine) 1.04 ng/dl (0.78-2.19)
[2023-07-05 16:43] LABS: Thyroid Stimulating Hormone 4.77 uIU/mL (0.465-4.68)
== END ==
PROVIDERS: PCP Nurse Practitioner Family; Visit Provider Nurse Practitioner Family
DX: E55.9 Vitamin D deficiency, unspecified (principal); E03.9 Hypothyroidism, unspecified; E78.5 Hyperlipidemia, unspecified; R74.8 Abnormal levels of other serum enzymes; Z68.21 Body mass index [BMI] 21.0-21.9, adult
CPT/HCPCS: 80053; 80061; 82306; 84439; 84443

== ENCOUNTER → 2023-08-17 08:01 | Outpatient (CLI) | payer BC, SELFPAY ==
[2023-08-17 16:56] LABS: Chol/HDL Ratio 5.2 (1-3.5); Cholesterol 271 mg/dl (140-200); HDL Cholesterol 52 mg/dl (40-60); Triglycerides 218 mg/dl (30-150); VLDL Cholesterol 44 mg/dL (0-40)
[2023-08-17 17:06] LABS: Direct LDL Cholesterol 169.65 mg/dL (100-129)
== END ==
PROVIDERS: PCP Nurse Practitioner Family; Visit Provider Nurse Practitioner Family
DX: E78.5 Hyperlipidemia, unspecified (principal)
CPT/HCPCS: 80061

== ENCOUNTER 2024-04-06 12:07 | Outpatient (CLI) | payer BC, SELFPAY | END 2024-04-06 23:59 | disposition home or self-care (01) | LOC: LAB.DROPOF 04-07 12:08 | PROVIDERS: PCP Nurse Practitioner Family; Visit Provider Nurse Practitioner Family | DX: N39.0 Urinary tract infection, site not specified (principal) | CPT/HCPCS: 87086; 87088; 87186 ==

== ENCOUNTER 2024-05-17 11:51 | Emergency (ER) | payer BC, SELFPAY ==
[2024-05-17 11:52] VITALS: BP 143/106; PULSE 84; RESP 18; TEMP 36.6; O2SAT 99; BMI 24.5
--- NOTE | 2024-05-17 12:03 | PC.NURSE ---
DR HORN AT BEDSIDE
[2024-05-17 12:09] VITALS: PULSE 102; O2SAT 95
[2024-05-17 12:15] VITALS: PULSE 95; O2SAT 95
[2024-05-17 12:20] VITALS: BP 146/106; PULSE 90; RESP 18; TEMP 36.6; O2SAT 99
--- NOTE | 2024-05-17 12:24 | HMH.EDGENADL ---
Discharge Plan Disposition Patient Disposition: Home, Self-Care Prescriptions Prescriptions: New methocarbamol 500 mg tablet 1,000 mg PO Q8H Qty: 90 0RF lidocaine 4 % adhesive patch,medicated 1 patch topical DAILY PRN (Reason: pain) Qty: 15 0RF No Action Tremfya 100 mg/mL auto-injector 100 mg SQ Q8W rabeprazole 20 mg tablet,delayed release (DR/EC) PO nitrofurantoin monohyd/m-cryst [Macrobid] 100 mg capsule 100 mg PO Q12H 10 Days Qty: 20 0RF Rx Instructions: must administer with a meal/food nystatin 100,000 unit/mL suspension 5 ml PO QID 10 Days Qty: 200 0RF Rx Instructions: swish and swallow fenofibrate nanocrystallized 145 mg tablet See Rx Instructions .ROUTE .COMPLEX Qty: 90 1RF Dose Instruction: TAKE ONE TABLET BY MOUTH EVERY DAY Rx Instructions: TAKE ONE TABLET BY MOUTH EVERY DAY paroxetine HCl [Paxil] 20 mg tablet 20 mg PO DAILY Qty: 90 3RF ezetimibe [Zetia] 10 mg tablet 10 mg PO DAILY Qty: 90 3RF Referrals Follow up/Referrals: Lilly Warren APRN [Primary Care Provider] - See instructions Activity Restrictions/Add. Instructions Additional Instructions/Restrictions: Use Tylenol 1000 mg every 6 hours, ibuprofen 400 mg every 6 hours, Robaxin and lidocaine patches as prescribed and as needed for pain. Follow-up with primary care doctor. Please return emerged part with any new, concerning, worsening symptoms. Clinical Impressions Clinical Impression: Intercostal muscle strain Qualifiers: Encounter type: initial encounter Qualified Code(s): S29.011A - Strain of muscle and tendon of front wall of thorax, initial encounter Print Language Print Language: Maori Discharge ED Provider: Romario Lobo General Adult HPI General Chief complaint: PAIN Stated complaint: R side and back pain Time Seen by Provider: 05/17/24 11:55 Mode of Arrival: Ambulatory Source of Information: Patient Limitations: No Limitations Description of Symptoms (Recalled from ER Triage Doc. by RN): PT REPORTS RIGHT SIDE PAIN UNDER RIB. REPORTS COVID LAST WEEK WITH COUGH. PAIN WORSE TODAY AFTER OPENING A BAG OF CHIPS. PAIN WORSE WITH MOVEMENT History of Present Illness HPI narrative: This is a 48-year-old female with a history of hyperlipidemia who presents with right flank pain. Patient states that she had COVID 1 week ago that was complicated by several coughing fits. States that she had a pain in her right lower back/flank around then around her ribs whenever she would cough. States that she was opening a bag of chips today whenever she had acute onset right flank pain. States that it is worse with movement and that if she shifts positions and rest for a while it will improve. Denies any shortness of breath. Related Data Home Medications ?Medication ?Instructions ?Recorded ?Confirmed guselkumab 100 mg/mL subcutaneous 100 mg SQ Q8W Psoriasis 05/26/23 04/06/24 auto-injector (Tremfya) rabeprazole 20 mg tablet,delayed mg PO 07/05/23 04/06/24 release Previous Rx's ?Medication ?Instructions ?Recorded fenofibrate nanocrystallized 145 See Rx Instructions .Route 01/25/24 mg tablet .COMPLEX #90 tabs ezetimibe 10 mg tablet (Zetia) 10 mg PO DAILY #90 tabs 02/24/24 paroxetine HCl 20 mg tablet (Paxil) 20 mg PO DAILY #90 tabs 02/24/24 nitrofurantoin 100 mg PO Q12H 10 days #20 caps 04/06/24 monohydrate/macrocrystals 100 mg capsule (Macrobid) nystatin 100,000 unit/mL oral 5 ml PO QID 10 days #200 mL 04/06/24 suspension lidocaine 4 % topical patch 1 patch topical DAILY PRN pain #15 05/17/24 ea methocarbamol 500 mg tablet 1,000 mg (2 x 500 mg) PO Q8H #90 05/17/24 tabs Allergies Allergy/AdvReac Type Severity Reaction Status Date / Time [id number]-[id number] Reductase Allergy Intermediate elevated Verified 04/06/24 11:07 [facility] Dis[facility]: The information contained in this section may have been updated after
== END 2024-05-17 12:20 | disposition home or self-care (01) ==
PROVIDERS: Emergency Provider Student in an Organized Health Care Education/Training Program; PCP Nurse Practitioner Family
DX: M62.838 Other muscle spasm (principal); F17.210 Nicotine dependence, cigarettes, uncomplicated; B37.0 Candidal stomatitis
CPT/HCPCS: 99282

== ENCOUNTER 2024-09-08 11:27 | Emergency (ER) | payer BC, SELFPAY ==
[2024-09-08 11:50] VITALS: BP 132/96; PULSE 102; RESP 21; TEMP 36.7; O2SAT 96; BMI 26.6
[2024-09-08 12:07] LABS: UTC Influenza A Antigen Negative (Negative); UTC Influenza B Antigen Negative (Negative)
--- NOTE | 2024-09-08 12:11 | EXP.UTC ---
Discharge Plan Disposition Patient Disposition: Home, Self-Care Condition: Good Prescriptions Prescriptions: New doxycycline hyclate 100 mg capsule 100 mg PO BID Qty: 20 0RF benzonatate 100 mg capsule 100 mg PO TID PRN (Reason: cough) Qty: 30 0RF guaifenesin [Mucinex] 1,200 mg tablet extended release 12hr 1,200 mg PO Q12H PRN (Reason: congestion) Qty: 20 0RF prednisone 20 mg tablet 20 mg PO BID 5 Days Qty: 10 0RF albuterol sulfate 90 mcg/actuation HFA aerosol inhaler 1 - 2 puff inhalation QID PRN (Reason: shortness of breath or wheezing) Qty: 8.5 0RF No Action rabeprazole 20 mg tablet,delayed release (DR/EC) 20 mg PO DAILY Patient Comments: TAKE ONE TABLET BY MOUTH EVERY DAY DIRECTED trazodone 50 mg tablet 50 mg PO DAILY Patient Comments: TAKE ONE TABLET BY MOUTH DAILY paroxetine HCl 20 mg tablet 20 mg PO DAILY Patient Comments: TAKE ONE TABLET BY MOUTH EVERY DAY paroxetine HCl 40 mg tablet 40 mg PO DAILY Patient Comments: TAKE ONE TABLET BY MOUTH DAILY ezetimibe 10 mg tablet 10 mg PO DAILY Patient Comments: TAKE ONE TABLET BY MOUTH EVERY DAY fenofibrate nanocrystallized 145 mg tablet 145 mg PO DAILY Patient Comments: TAKE ONE TABLET BY MOUTH DAILY Referrals Follow up/Referrals: Lilly Warren APRN [Primary Care Provider] - See instructions Activity Restrictions/Add. Instructions Additional Instructions/Restrictions: Seperate your dose of Rabeprazole and your Doxycycline by at least 2 hours Start antibiotic today. Be sure to complete entire prescription even if feeling better Monitor temp. Tylenol every 4 hours as needed and / or ibuprofen every 6 hours as needed ( As long as your primary care physician has told you that it ok to take both. For fever/aches/pains ER if no less than 101 despite Tylenol or Motrin Humidifier/vaporizer or hot steamy shower Inhaler every 4-6 hours as needed like we discussed. If unsure how to use it, ask pharmacist to demonstrate how. Should help open airways and improve cough, wheezing, and shortness of breath Mucinex during the day for your cough and cough suppressant only at night. Be sure to drink lots of water. Insurance may not cover a prescriptions for mucinex. Might be cheaper to get 400mg tablets and take 2 tablet in the morning, mid-day and evening with lots of water. Tessalon Perles will not cause drowsiness but use at bedtime to help stop cough so that you may get some rest. *Start steroid today. Helps with inflammation therefore, cough and wheezing. Follow directions on the package. Reviewed side effects. Patient reports taking them before. Follow up IMMEDIATELY for new or worsening of symptoms OR no noticeable improvement over the next 48-72 hours. 911 immediately for any life threatening symptoms such as chest pain or difficulty breathing Clinical Impressions Clinical Impression: Sinusitis, Bronchitis Instructions Patient Instructions: DI for Sinusitis, Acute Bronchitis Print Language Print Language: Irish Discharge ED Provider: Lilly Mi [facility] General Stated complaint: cough, fever Mode of Arrival: Ambulatory Source of Information: Patient Limitations: No Limitations Time Seen by Provider: 09/08/24 12:11 Description of Symptoms (Recalled from Triage Doc. by RN): PATIENT C/O COUGH, FEVER, AND BODY ACHES HEENT Symptoms (Recalled from RN notes): No Resp Symptoms (Recalled from RN notes): Yes Skin Symptoms (Recalled from RN notes): No MS Symptoms (Recalled from RN notes): No Functional Status (Recalled from RN notes): WNL History of Present Illness Provider Complaint: Patient states that for over a week she has been having sinus congestion and pressure, cough and feels like it is trying to move into her chest area now like bronchitis so she came in to get something to help her Related Data Home Medications ?Medication ?Instructions ?Recorded ?Confirmed ezetimibe 10 mg tablet 10 mg PO DAILY 09/08/24 09/08/24 fenofibrate nanocrystallized 145 145 mg PO DAILY 09/08/24 09/08/24 mg tablet paroxetine HCl 20 mg tablet 20 mg PO DAILY 09/08/24 09/08/24 paroxetine HCl 40 mg tablet 40 mg PO DAILY 09/08/24 09/08/24 rabeprazole 20 mg tablet,delayed 20 mg PO DAILY 09/08/24 09/08/24 release trazodone 50 mg tablet 50 mg PO DAILY 09/08/24 09/08/24 Previous Rx's ?Medication ?Instructions ?Recorded albuterol sulfate 90 mcg/actuation 1 - 2 puff inhalation QID PRN 09/08/24 aerosol inhaler shortness of breath or wheezing #8.5 grams benzonatate 100 mg capsule 100 mg PO TID PRN cough #30 caps 09/08/24 doxycycline hyclate 100 mg capsule 100 mg PO BID #20 caps 09/08/24 guaifenesin 1,200 mg tablet, 1,200 mg PO Q12H PRN congestion 09/08/24 extended release 12 hr (Mucinex) #20 tabs prednisone 20 mg tablet 20 mg PO BID 5 days #10 tabs 09/08/24 Allergies Allergy/AdvReac Type Severity Reaction Status Date / Time [id number] Reductase Allergy Intermediate elevated Verified 08/31/24 15:46 Inhibitor liver enzymes Worker's Comp Is this a Worker's Comp case?: No [facility] Disclaimer: The information contained in this section may have been updated after the patient was seen, as this information can be updated by other users. Medical History (Updated 09/08/24 @ 12:22 by Lilly Mi APRN) Intercostal muscle strain Canker sores oral Atypical chest pain Oral candidiasis Wheezing Elevated TSH Hypoglycemia Hyperglycemia Memory impairment Upper respiratory infection Concussion with loss of consciousness Viral syndrome Exposure to COVID-19 virus Surgical History No significant past surgical history Family History Other Cancer Coronary artery disease Heart attack Hypertension Social History Smoking Status: Current every day smoker tobacco type: cigarettes years smoked: 20 alcohol intake: current alcohol intake frequency: holidays/special occasions only substance use type: denies use current occupational status: employed Travel in the last 8 weeks: None household members: spouse housing: house marital status: number of children: 1 Have you lived/traveled outside US in past 30 days?: No Contact w/someone who lives/traveled outside US past 30 days?: No Exposure to someone with infectious disease in past 14 days?: No Do you have a fever (greater than 100.4 F or 38 C)?: Yes Have you tested positive for COVID-19: No Exposed to someone with COVID-19 in past 14 days?: No Do you have a sore throat?: No Do you have a cough?: Yes Do you have any weakness?: No Do you have any diarrhea?: No Are you experiencing any unusual bleeding?: No Do you have any muscle aches/pain?: No Do you have any abdominal pain?: No Are you experiencing loss of taste or smell?: No ROS Obtained: Yes All systems reviewed & no additional complaints except as documented and Yes Systems reviewed as appropriate & no additional complaints except as documented Constitutional Constitutional: Reports system reviewed and no additional complaints, except as documented and Reports as per HPI ENT Ears, Nose, Mouth, and Throat: Reports system reviewed and no additional complaints, except as documented, Reports as per HPI, Reports sinus pain and Reports sinus pressure Cardiovascular Cardiovascular: Reports system reviewed and no additional complaints, except as documented and Reports as per HPI Respiratory Respiratory: Reports system reviewed and no additional complaints, except as documented, Reports as per HPI, Denies shortness of breath, Reports chest congestion and Reports cough Gastrointestinal Gastrointestingal: Reports system reviewed and no additional complaints, except as documented and as per HPI Physical Exam General General appearance: alert and in no apparent distress ENT ENT exam: Present mucous membranes moist Expanded ENT Exam Nose exam: Present sinus tenderness Throat exam: Present other (PND noted) Respiratory Respiratory exam: Present normal lung sounds bilaterally; Absent respiratory distress or wheezes Cardiovascular Cardiovascular exam: Present regular rate, normal rhythm and tachycardia Abdominal Exam Abdominal exam: Present soft and normal bowel sounds; Absent distention or tenderness Neurological Exam Neurological exam: Present alert, oriented X3 and normal gait Medical Decision Making Medical Records Screening: Per USPSTF and CDC recommendations, given the prevalence of disease in our region, it is our hospital?s policy to screen for HIV and viral Hepatitis for all patients aged 18 and over and those with ongoing risk factors. Ricco Inquiry Pt receiving controlled substance: No Ricco was queried for this patient: No Vital Signs: 09/08/24 11:50 Temperature 98.0 F Temperature Source Oral Pulse Rate [Left Brachial] 102 H Respiratory Rate 21 Blood Pressure [Left Arm] 132/96 H Blood Pressure Mean [Left Arm] 108 Blood Pressure Source [Left Arm] Automatic Cuff Blood Pressure Position [Left Arm] Sitting 02 Sat by Pulse Oximetry 96 Oxygen Delivery Method Room Air Lab Data Lab Results 09/08/24 11:52: Influenza Type A Ag Negative, Influenza Type B Ag Negative Medical Decision Narrative: Discussed CXR patient declined
[2024-09-08 12:31] VITALS: BP 132/96; PULSE 102; RESP 21; TEMP 36.7; O2SAT 96
== END 2024-09-08 12:32 | disposition home or self-care (01) ==
PROVIDERS: Emergency Provider Nurse Practitioner; PCP Nurse Practitioner Family
DX: J01.90 Acute sinusitis, unspecified (principal); J20.9 Acute bronchitis, unspecified; R05.9 Cough, unspecified; R50.9 Fever, unspecified; R09.81 Nasal congestion
CPT/HCPCS: 87804; 99212; G0381

== ENCOUNTER 2024-09-11 08:25 | Emergency (ER) | payer BC, SELFPAY ==
[2024-09-11 08:26] VITALS: BP 103/87; PULSE 91; RESP 18; TEMP 36.6; O2SAT 95; BMI 22.4
--- NOTE | 2024-09-11 08:34 | XR_ITS ---
FINAL REPORT CLINICAL HISTORY: Nonspecific cough COMPARISON: 03/17/2023 FINDINGS: There is a small vague density which overlies the posterior right ninth rib. This could represent pneumonia, rib fracture, or even pulmonary nodule. The left lung is clear. The mediastinum has a normal appearance. The cardiac silhouette is unremarkable. IMPRESSION: Vague opacity right lung base overlying right ninth rib. Recommend continued chest radiographic follow-up. Reviewed, Interpreted and Dictated by Juancho Kent MD Transcribed by Gayathri Mahajan Authenticated and [facility]
[2024-09-11] MEDS: IPRATROPIUM/ALBUTEROL 3 ML NEB IH (08:36)
--- NOTE | 2024-09-11 08:36 | HMH.EDGENADL ---
Discharge Plan Disposition Patient Disposition: Home, Self-Care Condition: Good Prescriptions Prescriptions: New dextromethorphan-guaifenesin 60-1,200 mg tablet extended release 12 hr 1 tab PO BID PRN (Reason: cough) Qty: 14 0RF No Action rabeprazole 20 mg tablet,delayed release (DR/EC) 20 mg PO DAILY Patient Comments: TAKE ONE TABLET BY MOUTH EVERY DAY DIRECTED trazodone 50 mg tablet 50 mg PO DAILY Patient Comments: TAKE ONE TABLET BY MOUTH DAILY paroxetine HCl 20 mg tablet 20 mg PO DAILY Patient Comments: TAKE ONE TABLET BY MOUTH EVERY DAY paroxetine HCl 40 mg tablet 40 mg PO DAILY Patient Comments: TAKE ONE TABLET BY MOUTH DAILY ezetimibe 10 mg tablet 10 mg PO DAILY Patient Comments: TAKE ONE TABLET BY MOUTH EVERY DAY fenofibrate nanocrystallized 145 mg tablet 145 mg PO DAILY Patient Comments: TAKE ONE TABLET BY MOUTH DAILY doxycycline hyclate 100 mg capsule 100 mg PO BID Qty: 20 0RF benzonatate 100 mg capsule 100 mg PO TID PRN (Reason: cough) Qty: 30 0RF guaifenesin [Mucinex] 1,200 mg tablet extended release 12hr 1,200 mg PO Q12H PRN (Reason: congestion) Qty: 20 0RF prednisone 20 mg tablet 20 mg PO BID 5 Days Qty: 10 0RF albuterol sulfate 90 mcg/actuation HFA aerosol inhaler 1 - 2 puff inhalation QID PRN (Reason: shortness of breath or wheezing) Qty: 8.5 0RF Referrals Follow up/Referrals: Lilly Warren APRN [Primary Care Provider] - See instructions Activity Restrictions/Add. Instructions Additional Instructions/Restrictions: You were evaluated in the ER and are appropriate for discharge at this time. Continue taking the doxycycline and prednisone as directed. STOP the guaifenesin and benzonatate. START the dextromethorphan?guaifenesin. This will replace the 2 medications you are stopping. Take this as directed if needed for coughing. Use your albuterol 2 puffs every 4-6 hours if needed for shortness of breath. Make an appointment with your primary care doctor for reevaluation in a few days, return to the ER with new, worsening, or otherwise concerning symptoms. Clinical Impressions Clinical Impression: Cough Print Language Print Language: Romansh Discharge ED Provider: Burt,Mikalah General Adult HPI General Chief complaint: Upper Respiratory Infection Stated complaint: cough Time Seen by Provider: 09/11/24 08:28 History of Present Illness HPI narrative: 48-year-old female with a history of heavy tobacco use, depression, hyperlipidemia presents to the ER for complaints of persistent cough. Patient was evaluated in [facility] 4 days ago for similar symptoms. She reports at that time she picked up the medication she was prescribed and has been taking them as directed since then but continues having coughing fits. She states she does not feel particularly better, and states that sometimes she really has to catch her breath after her coughing fits. She reports she has never been diagnosed with COPD. She reports she is only using the albuterol inhaler once to twice daily. She is taking Mucinex as directed as well as benzonatate at night. She has been taking the doxycycline as directed. Patient reports she has mild congestion but no vomiting or diarrhea, no chest pain, no headache or dizziness, no numbness, tingling, weakness, or fever, no other associated symptoms. Related Data Home Medications ?Medication ?Instructions ?Recorded ?Confirmed ezetimibe 10 mg tablet 10 mg PO DAILY 09/08/24 09/08/24 fenofibrate nanocrystallized 145 145 mg PO DAILY 09/08/24 09/08/24 mg tablet paroxetine HCl 20 mg tablet 20 mg PO DAILY 09/08/24 09/08/24 paroxetine HCl 40 mg tablet 40 mg PO DAILY 09/08/24 09/08/24 rabeprazole 20 mg tablet,delayed 20 mg PO DAILY 09/08/24 09/08/24 release trazodone 50 mg tablet 50 mg PO DAILY 09/08/24 09/08/24 Previous Rx's ?Medication ?Instructions ?Recorded albuterol sulfate 90 mcg/actuation 1 - 2 puff inhalation QID PRN 09/08/24 aerosol inhaler shortness of breath or wheezing #8.5 grams benzonatate 100 mg capsule 100 mg PO TID PRN cough #30 caps 09/08/24 doxycycline hyclate 100 mg capsule 100 mg PO BID #20 caps 09/08/24 guaifenesin 1,200 mg tablet, 1,200 mg PO Q12H PRN congestion 09/08/24 extended release 12 hr (Mucinex) #20 tabs prednisone 20 mg tablet 20 mg PO BID 5 days #10 tabs 09/08/24 dextromethorphan-guaifenesin ER 60 1 tab PO BID PRN cough #14 tabs 09/11/24 mg-1,200 mg tab,extend release,12hr Allergies Allergy/AdvReac Type Severity Reaction Status Date / Time Vnyjzeu-WKY-GkV Reductase Allergy Intermediate elevated Verified 08/31/24 15:46 Inhibitor liver enzymes PFSH PFSH Disclaimer: The information contained in this section may have been updated after the patient was seen, as this information can be updated by other users. Medical History (Updated 09/11/24 @ 08:46 by Jose Alejandro Burt MD) Intercostal muscle strain Canker sores oral Atypical chest pain Oral candidiasis Wheezing Elevated TSH Hypoglycemia Hyperglycemia Memory impairment Upper respiratory infection Concussion with loss of consciousness Viral syndrome Exposure to COVID-19 virus Surgical History No significant past surgical history Family History Other Cancer Coronary artery disease Heart attack Hypertension Social History Smoking Status: Current every day smoker tobacco type: cigarettes years smoked: 20 alcohol intake: current alcohol intake frequency: holidays/special occasions only substance use type: denies use current occupational status: employed Travel in the last 8 weeks: None household members: spouse housing: house marital status: number of children: 1 Have you lived/traveled outside US in past 30 days?: No Contact w/someone who lives/traveled outside US past 30 days?: No Exposure to someone with infectious disease in past 14 days?: No Do you have a fever (greater than 100.4 F or 38 C)?: No Have you tested positive for COVID-19: No Exposed to someone with COVID-19 in past 14 days?: No Do you have a sore throat?: No Do you have a cough?: No Do you have any weakness?: No Do you have any diarrhea?: No Are you experiencing any unusual bleeding?: No Do you have any muscle aches/pain?: No Do you have any abdominal pain?: No Are you experiencing loss of taste or smell?: No Other Medical History Have you received the Flu Vaccine for this season: No Have you received the Pneumonia Vaccine: No ROS Obtained: Yes Systems reviewed as appropriate & no additional complaints except as documented Per HPI Physical Exam General General appearance: alert and in no apparent distress Head Head exam: atraumatic and normocephalic Eye Eye exam: Present PERRL and EOMI ENT ENT exam: Present mucous membranes moist Neck Neck exam: Present normal inspection and full ROM Chest Chest inspection: Present symmetric chest wall rise Respiratory Respiratory exam: Present normal lung sounds bilaterally (Good air movement throughout); Absent respiratory distress, wheezes or stridor Cardiovascular Cardiovascular exam: Present regular rate and normal rhythm Abdominal Exam Abdominal exam: Present soft; Absent distention or tenderness Extremities Exam Extremities exam: Present full ROM Neurological Exam Neurological exam: Present alert and oriented X3; Absent motor sensory deficit Psychiatric Psychiatric exam: Present normal affect and normal mood Skin Skin exam: Present warm and dry Medical Decision Making Medical Records Screening: Per USPSTF and CDC recommendations, given the prevalence of disease in our region, it is our hospital?s policy to screen for HIV and viral Hepatitis for all patients aged 18 and over and those with ongoing risk factors. Ricco Inquiry Pt receiving controlled substance: No Vital Signs: 09/11/24 08:26 09/11/24 09:35 09/11/24 09:36 Temperature 97.9 F Temperature Source Oral Pulse Rate 78 96 H Pulse Rate [Left Radial] 91 H Respiratory Rate 18 Blood Pressure 150/111 H 106/76 L Blood Pressure [Right Arm] 103/87 L Blood Pressure Mean [Right Arm] 92 Blood Pressure Source [Right Arm] Automatic Cuff Blood Pressure Position [Right Arm] Sitting 02 Sat by Pulse Oximetry 95 93 L 95 Oxygen Delivery Method Room Air Room Air Room Air Orders (Tests/Meds): ED MEDICATIONS Discontinued Medications Generic Name Dose Route Start Last Admin Trade Name Freq PRN Reason Stop Dose Admin Albuterol/Ipratropium 3 ml 09/11/24 08:36 Ipratropium/Albuterol 3 Ml Neb 09/11/24 08:37 ONCE ONE Lidocaine HCl 5 ml 09/11/24 08:34 09/11/24 08:42 Lidocaine 2% 5ml Pf Vial 09/11/24 08:35 5 ml ONCE ONE Administration ORDERS Category Date Time Status CXR 2 view (NOT portable) [XR chest 2V] Stat Exams 09/11/24 08:34 Completed Medical Decision Narrative: In summary, this 48-year-old female with heavy smoking history presents to the emergency department today with cough already on medications from [facility], see HPI. On initial evaluation patient is hemodynamically stable, afebrile, saturating well on room air, cardiopulmonary exam overall is reassuring. Differential diagnosis includes but is not limited to viral syndrome, pneumonia, I considered COPD/asthma however patient is well-appearing with no adventitious sounds no wheezing and good air movement, patient has reassuring vitals and exam so I have low suspicion for other acute pathology. Based on these concerns, I ordered chest x-ray to rule out lobar pneumonia and to establish a baseline since patient has a heavy smoking history, she has increased risk of worsening condition potentially needing repeat x-ray in the future. Patient received lidocaine neb and DuoNeb for treatment. He is offered significant improvement of symptoms, cough is dramatically improved. Chest x-ray personally turbid does not demonstrate acute intrathoracic abnormality, no lobar infiltrate, see radiology read for final interpretation. After reviewing patient's medications and her current symptoms, I instructed her to stop her guaifenesin and benzonatate and prescribed guaifenesin dextromethorphan. Patient was given instructions on symptomatic management, follow up instructions, and return precautions for the emergency department. Patient indicated understanding and was discharged in stable condition. Critical Care Critical Care Time Critical Care Time: No
[2024-09-11] MEDS: LIDOCAINE 2% 5ML PF VIAL 5 ML IH (08:42)
[2024-09-11 09:25] VITALS: BP 106/76; PULSE 83; RESP 16; TEMP 36.7; O2SAT 99
[2024-09-11 09:35] VITALS: BP 150/111; PULSE 78; O2SAT 93
[2024-09-11 09:36] VITALS: BP 106/76; PULSE 96; O2SAT 95
== END 2024-09-11 09:35 | disposition home or self-care (01) ==
LOC: ER 08:52
PROVIDERS: Emergency Provider Emergency Medicine; PCP Nurse Practitioner Family
DX: R05.9 Cough, unspecified (principal); R09.81 Nasal congestion
CPT/HCPCS: 71046; 99283; J7620

== ENCOUNTER 2025-03-28 08:49 | Emergency (ER) | payer BC, SELFPAY ==
[2025-03-28] VITALS (7 sets, daily range): BP systolic 100–139; BP diastolic 64–117; PULSE 71–114; RESP 17; TEMP 36.7; O2SAT 95–96; BMI 23.3
--- OUTSIDE RECORDS SUMMARY | 2025-03-28 08:55 | XMS_ITS | Data Portability ---
Author Organization [facility] HERACL[facility] Address [address] [facility] [address] [place] [address] Assessment No assessment recorded. 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 Referral None recorded. Procedures None recorded. Surgeries None recorded. Imaging None recorded. Medication Orders rabeprazo le 20 mg tablet,de layed release 2024 025 [facility], [address] [place] [address] [address] [place], [id number], 02/16/2025 16:10:46 rabeprazo le 20 mg tablet,de layed release 2023 024 [facility], [address] [place] [address] [address] [place], [id number], 01/14/2024 16:03:34 rabeprazo le 20 mg tablet,de layed release 2022 023 [facility], [address] [place] [address] [address], [id number], 05/24/2024 08:39:27 Patient TargetsNo targets recorded. Patient InstructionsNo instructions recorded. Reason for Referral None Reported. Problems Name Problem SNOMED Code Status Onset Date Resolution Date Notes Provider Name and Address Organization Details Recorded Time Psoriasis 1214806 Active Noel KUNZ, COMMERCIAL HOUSEKEEPER [address] [place], [address] , [facility] 06/04/2023 14:26:32 Problem Notes None recorded. Medical Equipment None Reported. Allergies No known drug allergies Medications Name Sig Start Date Stop Date Status Note LastModified by Organization Details LastModified Time rabeprazole 20 mg tablet,ruby yed release Take 1 tablet every day by oral route as directed for 30 days. 2024 active Not Available Not Available Not Avai lable Lipitor 07/16 completed Not Available Not Available Not Available Paxil 07/16 completed Not Available Not Available Not Available Sutab 1.479-0.188 -0.225 gram tablet Take by oral route for 2 days. 07/16 completed Not Available Not Available Not Available Vitals Date Recorded Body weight Body mass index (BMI) Body height Respiratory rate Heart rate Systolic And Diastolic Provider Name and Address Organization Details Last Updated DateTime 4 73342.7 4 g 25.3 kg/m2 165.1 cm 16 /min 84 /min 118/89 mm[Hg] [facility] 4 10:57:28 Date Recorded Body height Body mass index (BMI) Body weight Respiratory rate Heart rate Oxygen saturation Oxygen saturation in Arterial blood by Pulse oximetry Systolic And Diastolic Provider Name and Address Organization Details Last Updated DateTime 5 165.1 cm 25.9 kg/m2 03840.6 2 g 16 /min 111 /min 97 % 97 % 140/84 mm[Hg] [facility] 5 09:00:52 Date Recorded Body weight Respiratory rate Heart rate Systolic And Diastolic Provider Name and Address Organization Details Last Updated DateTime 07/16/2023 76138.66 g 16 /min 87 /min 114/86 mm[Hg] [facility] 07/16/2023 08:37:55 Social History Question Answer Notes LastModified by Organizat ion Details LastModified Time What Was The Date Of Your Most Recent Tobacco Screening? 06/04/2023 Information not available 06/04/2023 Has Tobacco Cessation Counseling Been Provided? No Information not available 06/04/2023 Sex: Unknown Functional Status Question Answer Note LastModified by Organizat ion Details LastModified Time Do you use any illicit or recreational drugs? No [facility] Information not available 06/04/2023 Do you or have you ever used any other forms of tobacco or nicotine? No [facility] Information not available 06/04/2023 What is your level of alcohol consumption? Occasional Information not available 06/04/2023 Mental Status None recorded. Family History Nothing Reported. Medical History Condition Response Depression N Ulcers Y Anxiety Disorder N Acid Reflux (GERD) Y High Cholesterol Y GERD/Reflux Y Sleep Disorder Y Heart Disease Gynecological HistoryNo gynecological history recorded. Obstetrics History GPAL:G 0 P 0 0 0 0 Past Encounters Encounter ID Performer Location Encounter Start Date Encounter Closed Date Diagnosis/Indication Diagnosis SNOMED-CT Code Diagnosis ICD10 Code Diagnosis Note [id number] CAROLE KUNZ APRN [facility] [address] [place] [address] 1 06/04/2023 13:21:05 06/04/2023 14:46:25 Abnormal weight loss 115022770 R63.4 Upper endoscopy, colonoscop y recommende d.labs, stools as orderedFol low up US with PCP as scheduled. Follow up 2-3 weeks after EGD, colonoscop y. History of psoriasis 161 531992 Z87.2 Loss of appetite 8625275 6 R63.0 Nausea and vomiting 1693 2000 R11.2 Urgent triny mark for stool 88399538 R15.2 Altered adrian wel function 49132962 R19.4 [id number] NIHARIKA HINOJOSA MD SURGERY SCHEDULE [address] [place] [address] 06/11/2023 08:12:35 06/11/2023 08:12:52 [id number] CAROLE KUNZ APRN [facility] [address] [place] [address], [place] [address] 07/16/2023 08:31:15 07/16/2023 09:14:10 Peptic ulcer 43073458 K27.9 Upper endoscopy 3 months, recheck ulcersColo noscopy in 3 years, polyps. Sooner if needed.Con tinue daily rabeprazol e.Avoidanc e of NSAIDS, ASAFollow up 6 months, call for any questions or concerns. [id number] NIHARIKA HINOJOSA MD SURGERY SCHEDULE [address] [place] [address] 09/24/2023 07:03:14 09/24/2023 07:03:44 [id number] CAROLE KUNZ COMMERCIAL HOUSEKEEPER [facility] [address] [facility], [place] [address] 01/07/2024 15:51:46 01/07/2024 16:13:22 Gastroesophageal reflux disease without esophagitis 619796626 K21.9 Restart the rabeprazol e as prescribed Follow up 6 weeks for med effectiven ess. Peptic ulcer 30451837 K2 7.9 [id number] CAROLE KUNZ COMMERCIAL HOUSEKEEPER [facility] [address] [place] [address] 1 02/16/2024 10:35:47 02/16/2024 12:06:51 Gastroesophageal reflux disease without esophagitis 002894031 K21.9 Continue rabeprazol e, at least 3 months on meds.If wanting to come off medication , start OTC pepcid AC as needed. If symptoms recur, she will need to restart the medication Follow up 1 year, sooner if needed. [id number] CAROLE KUNZ APRN [facility]STR[facility] [address] [facility], [place] [address] 02/16/2025 08:24:36 02/16/2025 09:59:49 Gastroesophageal reflux disease without esophagitis 098453994 K21.9 Continue rabeprazol e, at least 3 months on meds.If wanting to come off medication , start OTC pepcid AC as needed. If symptoms recur, she will need to restart the medication Follow up 1 year, sooner if needed. Esophageal dysphagia 408 16667 R13.19 Discussed upper endoscopy with dilation, which I think she needs. She declines to schedule today, but will call office when she is ready to have scheduled. Go to ER if food sticks and will not move up or down, can be life threatenin g emergency. Continue Rabeprazol e as prescribed Continued reflux precaution s.Colonosc opy in 2025, sooner if needed-his tory of polyps.Fol low up 1 year, sooner if needed. Health Concerns Section Related Observation LastModified by Organization Detai ls LastModified Time None Recorded Concern Status LastModified by Organization Details LastModified Time None Recorded Advance Directives Directive None Recorded Payers Insurance Date Sequence Insurance Name Policy Number Policy Ellis Covered Member ID Ellis Member ID Guarantor Name 02/13/2025 1 [place] ([place]) [id number] Rock Gresham [id number] Patricia Gresham Notes Date Note Type Note Provider Name and Address Organization Details Recorded Time 07/16/2023 text/html Patricia Gresham is a 47 yr old female here today for recheck, weight loss, nausea.She had multiple stomach ulcers. No Hpylori or evidence of Crohns.She had colon polyps, removed, advised to have repeat in 3 years.She reports symptoms have improved with rabeprazole. She is eating normally and regaining lost weight.Denies any NSAIDS, ASA use.DEnies any new or worsening concerns today. CAROLE KUNZ, COMMERCIAL HOUSEKEEPER [address] [place], [address], [facility] 07/16/2023 09:06:41 01/07/2024 text/html Carmella rGesham is a 48 yr old female here today for recheck, GERD.Recurrence of symptoms, stopped medication last month, and now having more issues.She reports some nausea, no vomiting.Upper endoscopy Sep 2023, no ulcers at that time, but she does have history of peptic ulcer CAROLE KUNZ, COMMERCIAL HOUSEKEEPER [address] [place], [address], [facility] 01/07/2024 15:58:02 02/16/2024 text/html Carmella Gresham is a 48 yr old female here today for recheck, Gerd.She reports improvement since restarting medication, rabeprazole.She denies any new or worsening concerns today. CAROLE KUNZ, COMMERCIAL HOUSEKEEPER [address] [place], [address], [facility] 02/16/2024 11:24:47 02/16/2025 text/html Carmella Gresham is a 49 yr old female here today for recheck, reflux. Needs refills on her rabeprazole which is controlling symptoms well.She is noticing some increased choking on foods, increased in frequency. Had normal endoscopy in 2023. She did not have symptoms of dysphagia at that time, but discussed with her this needed to be rechecked and dilated. She declines to schedule today, but will call when ready to schedule. She has verbalized understanding of procedure, risks and benefits.Denies pain with swallowing, no worsening heartburn or reflux symptoms.No melena or bright red rectal bleeding.Colonoscop y in 2022 with polyps, she is due again in 2025. CAROLE KUNZ, COMMERCIAL HOUSEKEEPER [address] [place], [place], [address], [facility] 02/16/2025 09:35:17 OBGyn Episode No OBEpisode recorded.
--- OUTSIDE RECORDS SUMMARY | 2025-03-28 08:56 | XMS_ITS | Continuity of Care Document ---
Author Organization [facility], [facility] Address [address] [facility] [address] [place] [address] Assessment No assessment recorded. 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 Referral None recorded. Procedures None recorded. Surgeries None recorded. Imaging None recorded. Medication Orders rabeprazo le 20 mg tablet,de layed release 2024 025 [facility], [address] [place], [id number], 02/16/2025 16:10:46 Patient TargetsNo targets recorded. Patient InstructionsNo instructions recorded. Reason for Referral None Reported. Problems Name Problem SNOMED Code Status Onset Date Resolution Date Notes Provider Name and Address Organization Details Recorded Time Psoriasis 7856062 Active 023 CAROLE KUNZ, SUPERVISOR [employer]LECTRON[employer] INSPECTION [address] [place], [address] , [facility] 06/04/2023 14:26:32 Problem Notes None recorded. Medical [...] Available Not Available Vitals Date Recorded Body height Body mass index (BMI) Body weight Respiratory rate Heart rate Oxygen saturation Oxygen saturation in Arterial blood by Pulse oximetry Systolic And Diastolic Provider Name and Address Organization Details Last Updated DateTime 5 165.1 cm 25.9 kg/m2 41300.6 2 g 16 /min 111 /min 97 % 97 % 140/84 mm[Hg] [facility] 09:00:52 Social History Question Answer Notes LastModified by [employer] Details LastModified Time What Was The Date Of Your Most Recent Tobacco Screening? 06/04/2023 Information not available 06/04/2023 Has Tobacco Cessation Counseling Been Provided? No [email or web address] Information not available 06/04/2023 Sex: Unknown Functional Status Question Answer Note LastModified by [employer] Details LastModified Time Do you use any illicit or recreational drugs? No Information not available 06/04/2023 Do you or have you ever used any other forms of tobacco or nicotine? No Information not available 06/04/2023 What is your level of alcohol consumption? Occasional Information not available 06/04/2023 Mental Status None recorded. Family History Nothing Reported. Medical History Condition Response Anxiety Disorder N High Cholesterol Y Sleep Disorder Y GERD/Reflux Y Acid Reflux (GERD) Y Ulcers Y Heart Disease Depression N Gynecological HistoryNo gynecological history recorded. Obstetrics History GPAL:G 0 P 0 0 0 0 Past Encounters Encounter ID Performer Location Encounter Start Date Encounter Closed Date Diagnosis/Indication Diagnosis SNOMED-CT Code Diagnosis ICD10 Code Diagnosis Note [id number] CAROLE KUNZ APRN [facility]STR[facility] [address] [facility], [address] [place] [address] 02/16/2025 08:24:36 02/16/2025 09:59:49 Gastroesophageal reflux disease without esophagitis 302111535 K21.9 Continue rabeprazol e, at least 3 months on meds.If wanting to come off medication , start OTC pepcid AC as needed. If symptoms recur, she will need to restart the medication Follow up 1 year, sooner if needed. Esophageal dysphagia 408 93456 R13.19 Discussed upper endoscopy with dilation, which [...] by Organization Details LastModified Time None Recorded Payers Encounter Date Sequence Insurance Name Policy Number Policy Ellis Covered Member ID Ellis Member ID Guarantor Name 02/16/2025 1 [employer] [id number] Rock Gresham [id number] aPtricia Gresham Notes Date Note Type Note Provider Name and Address Organization Details Recorded Time 02/16/2025 text/html Carmella Gresham is a 49 [...] is due again in 2025. CAROLE KUNZ, SUPERVISOR [employer]CTION [address] [place], [address], [facility] 02/16/2025 09:35:17 OBGyn Episode No OBEpisode recorded.
--- NOTE | 2025-03-28 09:05 | XR_ITS ---
FINAL REPORT CLINICAL HISTORY: dorsal pain over metatarsals COMPARISON: None FINDINGS: LEFT FOOT Three views of the left foot demonstrate no acute fracture or dislocation. The visualized joint spaces are normally aligned. The soft tissues are unremarkable. IMPRESSION: No acute bony abnormality. Reviewed, Interpreted and Dictated by Didier Rose MD Transcribed by Vanessa Hernandez Authenticated and [facility]
--- NOTE | 2025-03-28 09:06 | ED_ITS ---
Discharge Plan Disposition Patient Disposition: Home, Self-Care Prescriptions Prescriptions: No Action trazodone 50 mg tablet 100 mg PO DAILY Qty: 60 1RF sertraline [Zoloft] 25 mg tablet 25 mg PO DAILY Qty: 30 0RF rabeprazole 20 mg tablet,delayed release (DR/EC) 20 mg PO DAILY Patient Comments: TAKE ONE TABLET BY MOUTH EVERY DAY DIRECTED ezetimibe 10 mg tablet 10 mg PO DAILY Patient Comments: TAKE ONE TABLET BY MOUTH EVERY DAY fenofibrate nanocrystallized 145 mg tablet 145 mg PO DAILY Patient Comments: TAKE ONE TABLET BY MOUTH DAILY doxycycline hyclate 100 mg capsule 100 mg PO BID Qty: 20 0RF benzonatate 100 mg capsule 100 mg PO TID PRN (Reason: cough) Qty: 30 0RF guaifenesin [Mucinex] 1,200 mg tablet extended release 12hr 1,200 mg PO Q12H PRN (Reason: congestion) Qty: 20 0RF prednisone 20 mg tablet 20 mg PO BID 5 Days Qty: 10 0RF albuterol sulfate 90 mcg/actuation HFA aerosol inhaler 1 - 2 puff inhalation QID PRN (Reason: shortness of breath or wheezing) Qty: 8.5 0RF dextromethorphan-guaifenesin 60-1,200 mg tablet extended release 12 hr 1 tab PO BID PRN (Reason: cough) Qty: 14 0RF Referrals Follow up/Referrals: Rhonda Scott DPM [Staff Physician, Podiatry] - See instructions Lilly Warren APRN [Primary Care Provider, Family Practice] - See instructions Activity Restrictions/Add. Instructions Additional Instructions/Restrictions: At this time it was felt you are safe to be discharged home. If new or worsening symptoms please do not hesitate to return the emergency department. Please call and schedule appointment with Dr. Scott as soon as you are able. Clinical Impressions Clinical Impression: Acute foot pain, Foot swelling Stand Alone Forms Stand Alone Forms: Work/School Release Print Language Print Language: [place] Discharge ED Provider: Pedro Luis Becerril General Adult HPI General Chief complaint: PAIN Stated complaint: Pain/swelling in L foot Time Seen by Provider: 03/28/25 08:56 Mode of Arrival: Ambulatory Source of Information: Patient Description of Symptoms (Recalled from ER Triage Doc. by RN): Pt reports pain in her left foot x2 weeks and as of wednesday it started swelling and throbbing. History of Present Illness HPI narrative: Patient is a 49-year-old female who presents emergency department for evaluation of left foot pain for the last 2 weeks. She has a history of psoriasis but is well-controlled on biologic and has not progressed significantly in has had persistent pain in her left foot. Since Wednesday she has noticed some swelling over the dorsal aspect of her foot causing her to become concerned and present here for continued evaluation. No history of substance abuse. No discrete trauma that she can remember. It is worse with bearing weight. No other acute complaints at this time. Please note that above description of symptoms, in this electronic medical record under categorization of recalled from ER triage doctor by RN are reflective of an initial nursing assessment, however, is not reflective of my full history and physical exam that was personally taken and clarified. Consequentially, this preceding description of symptoms, which may include the patient's categorized chief complaint in the EMR, do not reflect my personal clinical impression, and the ultimate description of history of present illness and patient stated complaints should be deferred to this section of the note. Unless stated otherwise or congruent with this section of the note, additional signs, symptoms, or incongruence should be interpreted as inaccurate with my clinical impression. Related Data Home Medications ?Medication ?Instructions ?Recorded ?Confirmed ezetimibe 10 mg tablet 10 mg PO DAILY 09/08/2402/20 fenofibrate nanocrystallized 145 145 mg PO DAILY 09/0803/19/25 mg tablet rabeprazole 20 mg tablet,delayed 20 mg PO DAILY 03/19/25 release Previous Rx's ?Medication ?Instructions ?Recorded albuterol sulfate 90 mcg/actuation 1 - 2 puff inhalati on QID PRN 09/08/24 aerosol inhaler shortness of breath or wheez ing #8.5 grams benzonatate 100 mg capsule 100 mg PO TID PRN cough #30 caps 09/08/24 doxycycline hyclate 100 mg capsule 100 mg PO BID #20 c aps 09/08/24 guaifenesin 1,200 mg tablet, 1,200 mg PO Q12H PRN keturah estion 09/08/24 extended release 12 hr (Mucinex) #20 tabs prednisone 20 mg tablet 20 mg PO BID 5 days #10 tabs 09/08/24 dextromethorphan-guaifenesin ER 60 1 tab PO BID PRN co ugh #14 tabs 09/11/24 mg-1,200 mg tab,extend release,12hr sertraline 25 mg tablet (Zoloft) 25 mg PO DAILY #30 ta bs 03/19/25 trazodone 50 mg tablet 100 mg (2 x 50 mg) PO DAILY #60 03/19/25 tabs Allergies Allergy/AdvReac Type Severity Reaction Status Date / Time [id number] Reductase Allergy Intermediate elevated Verified 03/19/25 13:17 Inhibitor liver enzymes [facility] Disclaimer: The information contained in this section may have been updated after the patient was seen, as this information can be updated by other users. Medical History Intercostal muscle strain Canker sores oral Atypical chest pain Oral candidiasis Wheezing Elevated TSH Elevated TSH, started levothyroxine per PCP (Lilly Warren), scheduled to repeat labs 06/28/2023 Hypoglycemia Found during routine fasting labs. Hyperglycemia Memory impairment Upper respiratory infection Concussion with loss of consciousness Viral syndrome Exposure to COVID-19 virus Surgical History No significant past surgical history Family History Other Cancer Coronary artery disease Heart attack Hypertension Social History Smoking Status: Current every day smoker tobacco type: cigarettes years smoked: 20 alcohol intake: current alcohol intake frequency: holidays/special occasions only substance use type: denies use current occupational status: employed Travel in the last 8 weeks?: None household members: spouse housing: house marital status: number of children: 1 Have you lived/traveled outside [place] in past 30 days?: No Contact w/someone who lives/traveled outside [place] past 30 days?: No Exposure to someone with infectious disease in past 14 days?: No Do you have a fever (greater than 100.4 F or 38 C)?: No Have you tested positive for COVID-19?: No Exposed to someone with COVID-19 in past 14 days?: No Do you have a sore throat?: No Do you have a cough?: No Do you have any weakness?: No Do you have any diarrhea?: No Are you experiencing any unusual bleeding?: No Do you have any muscle aches/pain?: No Do you have any abdominal pain?: No Are you experiencing loss of taste or smell?: No Other Medical History Have you received the Flu Vaccine for this season: No Have you received the Pneumonia Vaccine: No ROS Obtained: Yes Systems reviewed as appropriate & no additional complaints except as documented Physical Exam General General appearance: alert and in no apparent distress Head Head exam: atraumatic and normocephalic Eye Eye exam: Present PERRL and EOMI ENT ENT exam: Present mucous membranes moist Neck Neck exam: Present normal inspection Chest Chest inspection: Present normal inspection and symmetric chest wall rise Respiratory Respiratory exam: Absent respiratory distress Cardiovascular Cardiovascular exam: Present regular rate and normal rhythm Abdominal Exam Abdominal exam: Present soft Extremities Exam Extremities exam: Present other (Mild swelling of the dorsal aspect of her left foot compared to the contralateral foot. No erythema, no fluctuance. Palpable dorsal pedal pulse on the left. Active range of motion of the ankle is preserved.); Absent calf tenderness (No asymmetric swelling of the left calf or hip compared to the contralateral side.) Neurological Exam Neurological exam: Present alert Psychiatric Psychiatric exam: Present normal affect Skin Skin exam: Present warm and dry Medical Decision Making Medical Records Screening: Per USPSTF and CDC recommendations, given the prevalence of disease in our region, it is our hospital?s policy to screen for HIV and viral Hepatitis for all patients aged 18 and over and those with ongoing risk factors. Ricco Inquiry Pt receiving controlled substance: No Vital Signs: 03/28/25 08:54 03/28/25 08:59 03/28/25 09:00 Temperature 98.1 F Temperature Source Oral Pulse Rate 88 93 H Pulse Rate [Right Brachial] 114 H Respiratory Rate 17 Blood Pressure 139/117 H 133/85 Blood Pressure [Right Arm] 126/91 H Blood Pressure Mean 125 95 Blood Pressure Mean [Right Arm] 102 Blood Pressure Source [Right Arm] Automatic Cuff Blood Pressure Position [Right Arm] Sitting 02 Sat by Pulse Oximetry 96 Oxygen Delivery Method Room Air 03/28/25 09:30 03/28/25 10:00 03/28/25 10:30 Temperature Temperature Source Pulse Rate 90 78 71 Pulse Rate [Right Brachial] Respiratory Rate Blood Pressure 136/86 114/68 100/64 L Blood Pressure [Right Arm] Blood Pressure Mean 93 83 75 Blood Pressure Mean [Right Arm] Blood Pressure Source [Right Arm] Blood Pressure Position [Right Arm] 02 Sat by Pulse Oximetry 95 96 95 Oxygen Delivery Method Orders (Tests/Meds): ED MEDICATIONS Discontinued Medications Generic Name Dose Route Start Last Admin Trade Name Lulu PRN Reason Stop Dose Admin Acetaminophen 1,000 mg 03/28/25 09:06 03/28/25 09:45 Acetaminophen 500mg Tab PO 03/28/25 09:07 Not Given ONCE ONE Ketorolac Tromethamine 60 mg 03/28/25 09:06 03/28/25 09:41 Ketorolac 30mg/Ml Vial IM 03/28/25 09:07 60 mg ONCE ONE Administration ORDERS Category Date Time Status Foot XR left minimum 3 views [XR foot LT min 3V] Stat Exams 03/28/25 09:05 Completed Medical Decision Narrative: In summary patient is a 49-year-old female past medical history described above who presents emergency department for evaluation of left foot swelling in the setting of psoriasis on biologic well-controlled. Patient is hemodynamically stable nontoxic-appearing upon arrival, afebrile. Differential includes musculoskeletal strain, fracture, among others. No history of IV drug use or uncontrolled diabetes to suspect spontaneous seeding of osteomyelitis. Her biologic has not resulted in leukopenia historically as well which also makes this diagnosis very unlikely. No concern for arterial pathology bounding dorsal pedal pulse on the left foot. No asymmetric swelling to suspect DVT of the left lower extremity. Plain films will be conducted and initial inventions include multimodal pain control. X-ray informally interpreted by me no acute displaced significant fracture. Formal read shows no acute pathology. Given this patient was Sandip wrapped and given crutches and will be weightbearing as tolerated will follow-up with Dr. Scott for continued evaluation. Critical Care Critical Care Time Critical Care Time: No
[2025-03-28] MEDS: KETOROLAC 30MG/ML VIAL 60 MG IM (09:41)
== END 2025-03-28 10:59 | disposition home or self-care (01) ==
PROVIDERS: Emergency Provider Emergency Medicine; PCP Nurse Practitioner Family
DX: M79.672 Pain in left foot (principal); R22.42 Localized swelling, mass and lump, left lower limb; F17.210 Nicotine dependence, cigarettes, uncomplicated
CPT/HCPCS: 73630; 96372; 99283; J1885

== ENCOUNTER 2025-04-19 12:56 | Outpatient (CLI) | payer BC, SELFPAY ==
--- NOTE | 2025-04-19 12:58 | CT_ITS ---
FINAL REPORT TECHNIQUE: Axial images were obtained from the lung apex to the mid abdomen by computed tomography. This study was performed with techniques to keep radiation doses as low as reasonably achievable (ALARA). Individualized dose reduction techniques using automated exposure control or adjustment of mA and/or kV according to the patient's size were employed. CLINICAL HISTORY: SCREENING, current snoker, 1ppd for 30 years FINDINGS: CHEST CT LOW DOSE CTDI vol (mGy): 2.90 DLP (mGy-cm): 100.29 There is no axillary adenopathy. There is no hilar or mediastinal adenopathy. The heart is normal in size. There is no pericardial or pleural effusion. There is emphysema and evidence of old granulomatous disease. There is a 3 mm left lower lobe subpleural nodule well-seen on series 4, image 61. Nodule along the right minor fissure measures 4 mm in the seen on image 45. Limited images of the upper abdomen are unremarkable. IMPRESSION: Bilateral pulmonary nodules. Lung RADS category 2. Recommend 12 month follow-up low-dose chest CT. Reviewed, Interpreted and Dictated by Yasmin Pierre MD Transcribed by Olamide Waddell Authenticated and [facility]
== END 2025-04-19 23:59 | disposition home or self-care (01) ==
LOC: RAD 12:56
PROVIDERS: PCP Family Medicine; Visit Provider Family Medicine
DX: R91.8 Other nonspecific abnormal finding of lung field (principal); Z12.2 Encounter for screening for malignant neoplasm of respiratory organs; Z87.891 Personal history of nicotine dependence
CPT/HCPCS: 71271

== ENCOUNTER 2025-05-07 12:40 | Outpatient (CLI) | payer BC, SELFPAY ==
[2025-05-07 13:11] LABS: Hematocrit 43.5 % (37.0-47.0); Hemoglobin 14.3 g/dL (12.2-16.2); Immature Granulocytes % 0.2 %; Mean Corpuscular HGB Conc 32.9 g/dL (31.8-35.4); Mean Corpuscular Hemoglobin 29.9 pg (27.0-31.2); Mean Corpuscular Volume 91.0 fl (81-99); Nucleated Red Blood Cells % 0 %; Platelet Count 350 K/mm3 (142-424); Red Blood Count 4.78 M/mm3 (4.20-5.40); Red Cell Distribution Width-SD 41.5 fL; White Blood Count 6.6 K/mm3 (4.8-10.8)
[2025-05-07 14:16] LABS: Chloride 101 mmol/L (98-107)
[2025-05-07 14:17] LABS: Albumin Level 4.5 g/dl (3.5-5.0); Potassium 4.1 mmoL/L (3.5-5.1); Sodium 137 mmol/L (136-145)
[2025-05-07 14:19] LABS: Blood Urea Nitrogen 8 mg/dl (7-17); Creatinine,Serum 0.90 mg/dl (0.52-1.04); Estimated Glomerular Filt Rate 66 ml/min (>60); GFR (African American) 80 ML/MIN (>60)
[2025-05-07 14:20] LABS: Alanine Aminotransferase 22 U/L (12-78); Albumin/Globulin Ratio 1.6 (1.1-1.8); Alkaline Phosphatase 80 U/L (38-126); Anion Gap 9.1 mEq/L (5-15); Aspartate Amino Transferase 39 U/L (14-36); Bilirubin,Total 0.3 mg/dl (0.2-1.3); Calcium 9.4 mg/dl (8.4-10.2); Carbon Dioxide 31 mmol/L (22.0-30.0); Globulin 2.8 g/dL (1.3-3.2); Glucose 94 mg/dl (74-100); Total Protein,Serum 7.3 g/dl (6.3-8.2)
== END 2025-05-07 23:59 | disposition home or self-care (01) ==
LOC: LAB 12:41
PROVIDERS: PCP Family Medicine; Visit Provider Dermatology
DX: L40.0 Psoriasis vulgaris (principal)
CPT/HCPCS: 36415; 80053; 85025; 86480

== ENCOUNTER 2025-05-07 15:40 | Emergency (ER) | payer BC, SELFPAY ==
--- NOTE | 2025-05-07 17:44 | ED_ITS ---
<Statement entered by Satish Esparza MD - 05/08/25 14:40> I was consulted by the LEÓN, and we discussed the complexity of the problems being addressed. I approve the treatment and management plan for this patient's care in the emergency department, thus performing a substantive portion of the medical decision making. Satish Esparza MD Discharge Plan Disposition Patient Disposition: Home, Self-Care Condition: Good Prescriptions Prescriptions: No Action sertraline 25 mg tablet 50 mg .ROUTE DAILY Qty: 30 2RF Rx Instructions: 50 mg daily; trazodone 150 mg tablet 150 mg PO HS Qty: 30 2RF rabeprazole 20 mg tablet,delayed release (DR/EC) 20 mg PO DAILY Patient Comments: TAKE ONE TABLET BY MOUTH EVERY DAY DIRECTED ezetimibe 10 mg tablet 10 mg PO DAILY Patient Comments: TAKE ONE TABLET BY MOUTH EVERY DAY fenofibrate nanocrystallized 145 mg tablet 145 mg PO DAILY Patient Comments: TAKE ONE TABLET BY MOUTH DAILY doxycycline hyclate 100 mg capsule 100 mg PO BID Qty: 20 0RF benzonatate 100 mg capsule 100 mg PO TID PRN (Reason: cough) Qty: 30 0RF guaifenesin [Mucinex] 1,200 mg tablet extended release 12hr 1,200 mg PO Q12H PRN (Reason: congestion) Qty: 20 0RF prednisone 20 mg tablet 20 mg PO BID 5 Days Qty: 10 0RF albuterol sulfate 90 mcg/actuation HFA aerosol inhaler 1 - 2 puff inhalation QID PRN (Reason: shortness of breath or wheezing) Qty: 8.5 0RF dextromethorphan-guaifenesin 60-1,200 mg tablet extended release 12 hr 1 tab PO BID PRN (Reason: cough) Qty: 14 0RF Referrals Follow up/Referrals: Álvaro Talbot MD [Primary Care Provider, Medical] - See instructions Favian Scott DO [Staff Physician, Orthopedics] - See instructions Activity Restrictions/Add. Instructions Additional Instructions/Restrictions: Please follow-up with the orthopedic physician in the upcoming days, I recommend crutches, wearing your boot and nonweightbearing until orthopedic follow-up, recommend ibuprofen Tylenol ice as needed for symptomatic relief. Please return to the emerged part any worsening signs or symptoms. Clinical Impressions Clinical Impression: Closed nondisplaced fracture of fifth left metatarsal bone Instructions Patient Instructions: DI for Foot Fracture Print Language Print Language: Yi Discharge ED Provider: Satish Esparza General Adult HPI General Chief complaint: Extremity Injury, Lower Stated complaint: AO 12/05/24 1230 injury left foot Time Seen by Provider: 05/07/25 17:43 Mode of Arrival: Ambulatory Source of Information: Patient Limitations: No Limitations History of Present Illness HPI narrative: 2-year-old female presents emergency department with left lateral foot pain after a fall today, patient states she was coming down 1 step , in her garage while wearing heels , when she fell, describes almost a eversion versus inversion injury to the left foot, she has been unable to bear weight on the affected extremity, she endorses pain and swelling describes as throbbing , she took ibuprofen and Tylenol around 3:30 PM today with little no relief or symptomatology, patient denies any fever chills chest pain shortness of breath, no presyncopal or syncopal episode, denies striking head, denies any LOC, denies any neck or back pain, no radicular symptomatology, no urinary bladder or bowel dysfunction, no abdominal pain no nausea no vomiting, no constipation no diarrhea, patient is a current everyday smoker, denies any alcohol or drug use, other past medical history is consistent with hyperlipidemia, TAHIR, hypothyroidism, restless leg syndrome, TAPAN/MDD. Initial triage vitals unremarkable. Please note that above description of symptoms, in this electronic medical record under categorization of recalled from ER triage doctor by RN are reflective of an initial nursing assessment, however, is not reflective of my full history and physical exam that was personally taken and clarified. Consequentially, this preceding description of symptoms, which may include the patient's categorized chief complaint in the EMR, do not reflect my personal clinical impression, and the ultimate description of history of present illness and patient stated complaints should be deferred to this section of the note. Unless stated otherwise or congruent with this section of the note, additional signs, symptoms, or incongruence should be interpreted as inaccurate with my clinical impression. Onset (ago): hour(s) Related Data Home Medications ?Medication ?Instructions ?Recorded ?Confirmed ezetimibe 10 mg tablet 10 mg PO DAILY 09/08/2403/14 fenofibrate nanocrystallized 145 145 mg PO DAILY 09/0804/25/25 mg tablet rabeprazole 20 mg tablet,delayed 20 mg PO DAILY 04/25/25 release Previous Rx's ?Medication ?Instructions ?Recorded albuterol sulfate 90 mcg/actuation 1 - 2 puff inhalati on QID PRN 09/08/24 aerosol inhaler shortness of breath or wheez ing #8.5 grams benzonatate 100 mg capsule 100 mg PO TID PRN cough #30 caps 09/08/24 doxycycline hyclate 100 mg capsule 100 mg PO BID #20 c aps 09/08/24 guaifenesin 1,200 mg tablet, 1,200 mg PO Q12H PRN keturah estion 09/08/24 extended release 12 hr (Mucinex) #20 tabs prednisone 20 mg tablet 20 mg PO BID 5 days #10 tabs 09/08/24 dextromethorphan-guaifenesin ER 60 1 tab PO BID PRN co ugh #14 tabs 09/11/24 mg-1,200 mg tab,extend release,12hr sertraline 25 mg tablet 50 mg (2 x 25 mg) .Route MIKE LY #30 04/25/25 tabs trazodone 150 mg tablet 150 mg PO HS #30 tabs Allergies Allergy/AdvReac Type Severity Reaction Status Date / Time Sywvare-CSC-OnJ Reductase Allergy Intermediate elevated Verified 04/25/25 13:33 Inhibitor liver enzymes [facility] Disclaimer: The information contained in this section may have been updated after the patient was seen, as this information can be updated by other users. Medical History Intercostal muscle strain Canker sores oral Atypical chest pain Oral candidiasis Wheezing Elevated TSH Elevated TSH, started levothyroxine per PCP (Lilly Warren), scheduled to repeat labs 06/28/2023 Hypoglycemia Found during routine fasting labs. Hyperglycemia Memory impairment Upper respiratory infection Concussion with loss of consciousness Viral syndrome Exposure to COVID-19 virus Surgical History No significant past surgical history Family History Other Cancer Coronary artery disease Heart attack Hypertension Social History Smoking Status: Current every day smoker tobacco type: cigarettes years smoked: 20 alcohol intake: current alcohol intake frequency: holidays/special occasions only substance use type: denies use current occupational status: employed Travel in the last 8 weeks?: None household members: spouse housing: house marital status: number of children: 1 Have you lived/traveled outside [place] in past 30 days?: No Contact w/someone who lives/traveled outside US past 30 days?: No Exposure to someone with infectious disease in past 14 days?: No Do you have a fever (greater than 100.4 F or 38 C)?: No Have you tested positive for COVID-19?: No Exposed to someone with COVID-19 in past 14 days?: No Do you have a sore throat?: No Do you have a cough?: No Do you have any weakness?: No Do you have any diarrhea?: No Are you experiencing any unusual bleeding?: No Do you have any muscle aches/pain?: No Do you have any abdominal pain?: No Are you experiencing loss of taste or smell?: No Other Medical History Have you received the Flu Vaccine for this season: No Have you received the Pneumonia Vaccine: No ROS Obtained: Yes All systems reviewed & no additional complaints except as documented Physical Exam General General appearance: alert, in no apparent distress and anxious Comment: Mildly anxious appearing, in obvious pain Head Head exam: atraumatic and normocephalic Eye Eye exam: Present PERRL and EOMI ENT ENT exam: Present mucous membranes moist Neck Neck exam: Present normal inspection Chest Chest inspection: Present normal inspection and symmetric chest wall rise Respiratory Respiratory exam: Present normal lung sounds bilaterally; Absent respiratory distress Cardiovascular Cardiovascular exam: Present regular rate and normal rhythm Abdominal Exam Abdominal exam: Present soft; Absent tenderness, guarding or rebound Extremities Exam Extremities exam: Present normal inspection, tenderness and other (Pain limited range of motion, soft tissue swelling about the left ankle/foot, there is pain palpation along the fifth metatarsal region, patient has difficulty with plantarflexion and dorsiflexion, otherwise neurovascular intact.); Absent full ROM Neurological Exam Neurological exam: Present alert and oriented X3 Psychiatric Psychiatric exam: Present normal affect Skin Skin exam: Present warm and dry Medical Decision Making Medical Records Medical records reviewed: Yes I reviewed the patient's medical records. Screening: Per USPSTF and CDC recommendations, given the prevalence of disease in our [facility], it is our hospital?s policy to screen for HIV and viral Hepatitis for all patients aged 18 and over and those with ongoing risk factors. Ricco Inquiry Pt receiving controlled substance: No Ricco was queried for this patient: No Vital Signs: 05/07/25 17:53 05/07/25 17:55 05/07/25 18:00 Temperature 99.4 F Temperature Source Oral Pulse Rate 75 Pulse Rate [Right Brachial] 78 Respiratory Rate 17 Blood Pressure 132/90 125/86 Blood Pressure [Right Arm] 132/90 Blood Pressure Mean 104 96 Blood Pressure Mean [Right Arm] 104 Blood Pressure Source [Right Arm] Automatic Cuff Blood Pressure Position [Right Arm] Sitting 02 Sat by Pulse Oximetry 96 95 Oxygen Delivery Method Room Air 05/07/25 18:30 Temperature Temperature Source Pulse Rate 75 Pulse Rate [Right Brachial] Respiratory Rate Blood Pressure 120/83 Blood Pressure [Right Arm] Blood Pressure Mean 90 Blood Pressure Mean [Right Arm] Blood Pressure Source [Right Arm] Blood Pressure Position [Right Arm] 02 Sat by Pulse Oximetry 95 Oxygen Delivery Method Orders (Tests/Meds): ED MEDICATIONS Discontinued Medications Generic Name Dose Route Start Last Admin Trade Name Freq PRN Reason Stop Dose Admin Hydrocodone Bitart/Acetaminophen 1 tab 05/07/25 17:49 05/07/25 18:10 Hydrocodone/Apap 5/325 Mg Tablet PO 05/07/25 17:50 1 tab ONCE ONE Administration ORDERS Category Date Time Status XR ankle LT min 3V Stat Exams 05/07/25 17:48 Completed XR foot LT min 3V Stat Exams 05/07/25 17:48 Completed Medical Decision Narrative: 49-year-old female presents the emergency department with left lateral foot pain after fall, differential diagnose include but not limited to Paredes fracture, pseudo Paredes fracture, ankle fracture, other foot fracture, foot sprain/strain, ankle sprain/strain. I discussed this patient's case with the attending physician Dr. Esparza Will obtain x-ray of the left ankle, left foot, will give 5 mg p.o. Industry for pain. I reviewed the patient's left foot x-ray, left ankle x-ray along the corresponding radiologic report, there is an acute nondisplaced fracture of the base the fifth metatarsal. I discussed the results with the patient and family the bedside patient and family agree with current treatment plan/discharge plan, patient follow-up with orthopedic physician and nonweightbearing with crutches and boot until follow- up. Patient was given strict ED return precautions, recommend ibuprofen Tylenol as needed for symptomatic relief. Patient voiced understanding. Critical Care Critical Care Time Critical Care Time: No
--- NOTE | 2025-05-07 17:48 | XR_ITS ---
PROCEDURE INFORMATION: Exam: XR Left Foot Exam date and time: 05/07/2025 5:57 PM Age: 49 years old Clinical indication: Pain; Foot; Left; Additional info: Left lateral foot pain after fall TECHNIQUE: Imaging protocol: Radiologic exam of the left foot. Views: 3 or more views. COMPARISON: CR XR FOOT LT MIN 3V 03/28/2025 9:17 AM FINDINGS: Bones/joints: No acute fracture or dislocation. Soft tissues: Normal. IMPRESSION: No acute fracture or dislocation.
--- NOTE | 2025-05-07 17:48 | XR_ITS ---
PROCEDURE INFORMATION: Exam: XR Left Ankle Exam date and time: 05/07/2025 5:57 PM Age: 49 years old Clinical indication: Pain; Ankle; Left; Additional info: Left foot ankle pain after fall TECHNIQUE: Imaging protocol: Radiologic exam of the left ankle. Views: 3 or more views. COMPARISON: CR XR FOOT LT MIN 3V 03/28/2025 9:17 AM FINDINGS: Bones/joints: Acute, nondisplaced fracture of the base of the 5th metatarsal. Soft tissues: Normal. IMPRESSION: Acute, nondisplaced fracture of the base of the 5th metatarsal.
[2025-05-07 17:53] VITALS: BP 132/90
[2025-05-07 17:55] VITALS: BP 132/90; PULSE 78; RESP 17; TEMP 37.4; O2SAT 96; BMI 22.8
[2025-05-07 18:00] VITALS: BP 125/86; PULSE 75; O2SAT 95
[2025-05-07] MEDS: HYDROCODONE/APAP 5/325 MG TABLET 1 TAB PO (18:10)
[2025-05-07 18:30] VITALS: BP 120/83; PULSE 75; O2SAT 95
[2025-05-07 19:00] VITALS: BP 127/81; PULSE 74; RESP 16; O2SAT 98
[2025-05-07 19:14] VITALS: BP 127/81; PULSE 74; RESP 16; TEMP 36.6; O2SAT 98
== END 2025-05-07 19:15 | disposition home or self-care (01) ==
PROVIDERS: Emergency Provider Student in an Organized Health Care Education/Training Program; PCP Family Medicine
DX: S92.355A Nondisplaced fracture of fifth metatarsal bone, left foot, initial encounter for closed fracture (principal); M79.672 Pain in left foot; W10.8XXA Fall (on) (from) other stairs and steps, initial encounter
CPT/HCPCS: 73610; 73630; 99283

== ENCOUNTER 2025-05-29 09:08 | Outpatient (CLI) | payer BC, SELFPAY ==
--- NOTE | 2025-05-29 09:11 | XR_ITS ---
FINAL REPORT CLINICAL HISTORY: left 5th metarsal fx COMPARISON: 05/07/2025 FINDINGS: AP, oblique and lateral views of the left foot were obtained. There is no significant change of the nondisplaced fracture of the base of the fifth metatarsal since the prior exam. There is no acute fracture or dislocation. The joint spaces are preserved. Soft tissues are unremarkable. IMPRESSION: Stable fracture of the base of the fifth metatarsal since the prior exam. Reviewed, Interpreted and Dictated by Yasmin Pierre MD Transcribed by Niecy Izaguirre Authenticated and [facility]
== END 2025-05-29 23:59 | disposition home or self-care (01) ==
LOC: RAD 09:09
PROVIDERS: PCP Family Medicine; Visit Provider Physician Assistant
DX: S92.355A Nondisplaced fracture of fifth metatarsal bone, left foot, initial encounter for closed fracture (principal)
CPT/HCPCS: 73630

== ENCOUNTER 2025-06-04 14:22 | Outpatient (CLI) | payer BC, SELFPAY ==
--- NOTE | 2025-06-04 14:23 | XR_ITS ---
FINAL REPORT CLINICAL HISTORY: eval and treat FINDINGS: LEFT FOOT Three views of the left foot demonstrate bleak, nondisplaced fracture at the base of the fifth metatarsal. No other fracture is identified. The visualized joint spaces are normally aligned. The soft tissues are unremarkable. IMPRESSION: Oblique, nondisplaced fracture at the base of the fifth metatarsal. Reviewed, Interpreted and Dictated by Juancho Kent MD Transcribed by Ruth Trotter Authenticated and [facility]
== END 2025-06-04 23:59 | disposition home or self-care (01) ==
LOC: RAD 14:23
PROVIDERS: Visit Provider Physician Assistant
DX: S92.355A Nondisplaced fracture of fifth metatarsal bone, left foot, initial encounter for closed fracture (principal)
CPT/HCPCS: 73630

== ENCOUNTER 2025-06-26 12:53 | Outpatient (CLI) | payer BC, SELFPAY ==
--- OUTSIDE RECORDS SUMMARY | 2025-04-02 09:30 | XMS_ITS ---
Author Organization [facility] Address [address] [facility] [address] [place] [id number] Care Team Providers Care Instrument Inspector Name Role Phone Álvaro Talbot Unavailable [phone] Allergies No Known Allergies Results Component Value Reference Range Notes CBC Venipuncture (in house) Reviewed date:04/02/2025 02:55:47 PM Interpretation: Performing Lab: Notes/Report: wbc 7.2 3.5 - 10 lymph 27.2% 15 - 50 mid 6.4% 2 - 15 gran 66.4% 35 - 80 rbc 4.90 3.5 - 5.5 hgb 14.8 11.5 - 16.5 hct 43.7 35 - 55 mcv 89.1 75 - 100 mch 30.2 25 - 35 mchc 33.8 31 - 38 platlet 327 100 - 400 P-Comprehensive Metabolic Pa nicol (CMP) Reviewed date:04/04/2025 11:11:23 AM Interpretation:Normal Performing Lab: Notes/Report: Test performed by [facility] , [address], [place] [address] Eduard Montano MD, Ultrasound Manager CLIA: [id number] Sodium 135 135-145 mmol/L Potassium 4.2 3.5-5.3 mmol/L Chloride 98 97-108 mmol/L CO2 25 20-32 mmol/L Glucose 94 65-99 mg/dL BUN 8 6-20 mg/dL Creatinine 0.80 0.50-1.00 mg/dL Calcium 9.2 8.6-10.4 mg/dL eGFR by Creatinine 90 >59 mL/min/1.73m2 Protein 7.2 6.0-8.3 g/dL Albumin 4.3 3.5-5.3 g/dL Alkaline Phosphatase 121 35-121 IU/L ALT (SGPT) 35 <5-47 IU/L AST (SGOT) 39 <5-40 IU/L Bilirubin, Total 0.2 <0.2-1.2 mg/dL A/G Ratio 1.5 1.1-2.5 P-Lipid Panel Reviewed date:04/04/2025 11:11:23 AM Interpretation:chol 247, trigs 615, chol/hdl 5.49, non-hdl 202 Performing Lab: Notes/Report: Test performed by [facility], [address] , [address], [place] [address] Eduard Montano MD, Ultrasound Manager CLIA: [id number] Cholesterol 247 <200 mg/dL Triglycerides 615 <150 mg/dL HDL Cholesterol 45 >39 mg/dL Cholesterol / HDL Ratio 5.49 0.00-4.44 Ratio Non-HDL Cholesterol 202 <130 mg/dL LDL Cholesterol (Calculation) SEE COMMENT <130 mg/dL LDL Cholesterol Levels* Less than 100 mg/dL Optimal 100 to 129 mg/dL Near Optimal/ Above Optimal 130 to 159 mg/dL Borderline High 160 to 189 mg/dL High 190 mg/dL and above Very High * Categories as recommended by the 2004 ATPIII guidelines Unable to calculate due to Triglycerides >400 mg/dL LDL/HDL Ratio SEE COMMENT <3.3 Ratio Unable to calculate due to Triglycerides >400 mg/dL LDL Cholesterol Patient History Test Date: 04/02/2025 LDL Results: SEE COMMENT Units: mg/dL % Change: - P-TSH reflex to FT4 Reviewed date:04/04/2025 11:11:23 AM Interpretation:Normal Performing Lab: Notes/Report: Test performed by [facility] [address] [place] [address] , [place] [address] Eduard Montano MD, Ultrasound Manager CLIA: [id number] TSH reflex to FT4 3.87 0.43-5.25 mU/L P-Uric Acid Reviewed date:04/04/2025 11:11:23 AM Interpretation:Normal Performing Lab: Notes/Report: Test performed by [facility] [address] [place] [address] , [address], [place] [address] Eduard Montano MD, Ultrasound Manager CLIA: [id number] Uric Acid 6.4 2.4-7.0 mg/dL CT Scan : Chest, low dose Reviewed date:04/25/2025 04:48:45 PM Interpretation:bilateral nodules, nothing suspicious for cancer, recommend annual f/u Performing Lab: Notes/Report: bilateral nodules, nothing suspicious for cancer, recommend annual f/u REASON FOR VISIT Establishment, swelling in toes Medications Medication SIG (Take, Route, Frequency, Duration) Notes Start Date End Date Status Sertraline HCl 25 MG 1 tablet Orally Once a day Active RABEprazole Sodium 20 MG 1 tablet 1/2 to 1 hour before a meal Orally Once a day Active Ezetimibe 10 MG 1 tablet Orally Once a day Active Fenofibrate 145 MG 1 tablet Orally Once a day Active Ixekizumab 80 MG/ML 1 mL Subcutaneous Active traZODone HCl 100 MG 1 tablet at bedtime Orally Once a day Active Social History Tobacco Use: Social History Observation Description Date Details (start date - stop date) Current Smoker NA - NA CURRENT TOBACCO USE: Question Answer Notes Are you a: current every day smoker 1 PPD Problems Problem Type SNOMED Code ICD Code Onset Dates Problem Status W/U Status Risk Notes Problem Mixed hyperlipidemia (371398029) Mixed hyperlipidemia (E78.2) Active confirmed Problem Hypertriglyceridemia (264101969) Hypertriglyceridemia (E78.1) Active confirmed Problem Primary insomnia (7063753) Primary insomnia (F51.01) Active confirmed Problem Anxiety disorder (873727492) Anxiety disorder, unspecified (F41.9) Active confirmed Vital Signs Blood pressure systolic 130 mm Hg 04/02/20 25 Blood pressure diastolic 78 mm Hg 025 Heart Rate 85 /min 04/02/2025 Height 66 in 04/02/2025 Weight 157 lbs 04/02/2025 BMI 25.34 kg/m2 04/02/2025 Encounters Encounter Location Date Provider Diagnosis [facility] [address] [facility] [address] [place], [place] [id number] 04/02/2025 Álvaro [place] Pain in left foot M7 9.672 ; Mixed hyperlipidemia E78.2 ; Hypertriglyceridemia E78.1 ; Primary insomnia F51.01 ; Anxiety disorder, unspecified F41.9 ; Depression, unspecified F32.A ; residential use of drug Z79.899 ; Personal history of nicotine dependence Z87.891 ; Screening for lung cancer Z12.2 and BMI 25.0-25.9,adult Z68.25 Assessments Encounter Date Diagnosis (ICD Code) Assessment Notes Treatment Notes Treatment Clinical Notes Section Notes 04/02/2025 Pain in left foot (ICD-10 - M79.672) 04/02/2025 Mixed hyperlipidemia (ICD-10 - E78.2) 04/02/2025 Hypertriglyceridemia (ICD-10 - E78.1) 04/02/2025 Primary insomnia (IC D-10 - F51.01) 04/02/2025 Anxiety disorder, unspecified (ICD-10 - F41.9) 04/02/2025 Depression, unspecif ied (ICD-10 - F32.A) 04/02/2025 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) 04/02/2025 Personal history of nicotine dependence (ICD-10 - Z87.891) 04/02/2025 Screening for lung cancer (ICD-10 - Z12.2) 04/02/2025 BMI 25.0-25.9,adult (ICD-10 - Z68.25) Plan Of Treatment Medication Medication Name Sig Start Date Stop Date Notes Sertraline HCl 25 MG 1 tablet Orally Once a day Ezetimibe 10 MG 1 tablet Orally Once a day Fenofibrate 145 MG 1 tablet Orally Once a day traZODone HCl 100 MG 1 tablet at bedtime Orally Once a day Next Appt Details Follow Up: 6 Months, Reason: Progress Notes * Della MICHAELOB:1975 ( 49 yo F)Acc No.[id number]:04/02/2025 Progress Notes Patient: Carmella LEOS Provider: Carole Talbot M.D. :1975 A ge:49 Y S ex:Female Date:04/02/2025 Address:[address] [place] [address] [address] [place], [id number] Subjective: * Chief Complaints: * 1 . Establishment, swelling in toes. * HPI: H PI: 49 year old female presents with c/o Here for follow up on:?03/28/2025 [facility] ER visit. Pt went to er for lt foot swelling and redness. Pt states swelling has improved but lt foot is still painful to walk on . c/o Patient is here today for P t here to establish care. Pt was previously seen by Dr. Alvarado. * ROS: C ARDIOLOGY: no D izziness. n o C hest pain. G ASTROENTEROLOGY: no N ausea. n o V omiting. U ROLOGY: no D ifficulty urinating. n o B lood in urine. * Medical History: H yperlipidemia, Psoriasis, Esophageal reflux, Colon polyps, Peptic ulcer disease, Depression, Anxiety, 30 pack year smoking history as of 2024. * Surgical History: D enies Past Surgical History. * Hospitalization/Major Diagno stic Procedure: D enies Past Hospitalization. * Family History: F ather: alive 85 yrs, diagnosed with Cancer, Heart Disease. M other: alive 88 yrs. 1 sister(s) . 1 son(s) . . * Social History: C URRENT TOBACCO USE: Yes A re you a: c urrent every day smoker 1 PPD. C affeine: yes, frequency: daily. Alcohol: yes, Socially. * Medications: T aking Ixekizumab 80 MG/ML Solution Prefilled Syringe 1 mL Subcutaneous , Taking Sertraline HCl 25 MG Tablet 1 tablet Orally Once a day , Taking traZODone HCl 100 MG Tablet 1 tablet at bedtime Orally Once a day , Taking RABEprazole Sodium 20 MG Tablet Delayed Release 1 tablet 1/2 to 1 hour before a meal Orally Once a day , Taking Ezetimibe 10 MG Tablet 1 tablet Orally Once a day , Taking Fenofibrate 145 MG Tablet 1 tablet Orally Once a day , Medication List reviewed and reconciled with the patient * Allergies: N .K.D.A. Objective: * Vitals: W t: 157, Temp: 97.8, BP: 130/78, HR: 85, Nurse: ron, Ht: 66, BMI:25.34. * Examination: G eneral Examination: HEENT: u nremarkable. O ral cavity: n o lesions, mucosa moist and WNL, no erythema. N phan: s upple, no lymphadenopathy. H eart: R SR.?Lungs: c lear to auscultation. N eurologic Exam: I ntact, gait normal. S kin: normal, no rash. P eripheral pulses: n ormal (2+) bilaterally. E xtremities: n o leg edema, left foot exam is basically normal now, only trace edema of the middle 3 toes. ? P sychology: General Appearance: N AD. G rooming : a dequate.?Eye contact : n ormal. M ood : p leasant. Assessment: * Assessment: 1. P ain in left foot - M79.672 (Primary) 2 . M ixed hyperlipidemia - E78.2? 3. H ypertriglyceridemia - E78.1 4 . P rimary insomnia - F51.01 5 . A nxiety disorder, unspecified - F41.9 6 . D epression, unspecified - F32.A 7 . L maicol term use of drug - Z79.899 8 . P ersonal history of nicotine dependence - Z87.891 9 . S creening for lung cancer - Z12.[address] 25.0-25.9,adult - Z68.25 Plan: * Treatment: Value Reference Range U carmen Acid 6.4 2.4-7.0 - mg/dL * Moira Reyes 04/04/2025 11:1 1:14 AM EDT > See phone encounter 2.?Mixed hyperlipidemia? Continue Ezetimibe Tablet, 10 MG, 1 tablet, Orally, Once a day.?LAB: P-Comprehensive Metabolic Panel (CMP) (Collection Date & Time - 04/02/2025 01:06 PM)?Normal* Value Reference Range A /G Ratio 1.5 1.1-2.5 - * A lbumin 4.3 3.5-5.3 - g/dL * A lkaline Phosphatase 121 35-121 - IU/L * A LT (SGPT) 35 <5-47 - IU/L * A ST (SGOT) 39 <5-40 - IU/L * B ilirubin, Total 0.2 <0.2-1.2 - mg/dL * B UN 8 6-20 - mg/dL * C alcium 9.2 8.6-10.4 - mg/dL * C hloride 98 97-108 - mmol/L * C O2 25 20-32 - mmol/L * C reatinine 0.80 0.50-1.00 - mg/dL * G lucose 94 65-99 - mg/dL * P otassium 4.2 3.5-5.3 - mmol/L * S odium 135 135-145 - mmol/L * P rotein 7.2 6.0-8.3 - g/dL * e GFR by Creatinine 90 >59 - mL/min/1.73m2 * Moira Reyes 04/04/2025 11:1 1:14 AM EDT > See phone encounter ?LAB: P-Lipid Panel (Collection Date & Time - 04/02/2025 01:06 PM)?chol 247, trigs 615, chol/hdl 5.49, non-hdl 202* Value Reference Range C holesterol / HDL Ratio 5.49 H 0.00-4.44 - Ratio * C holesterol 247 H <200 - mg/dL * H DL Cholesterol 45 >39 - mg/dL * L DL Cholesterol (Calculation) SEE COMMENT <130 - mg/d L * L DL/HDL Ratio SEE COMMENT <3.3 - Ratio * N on-HDL Cholesterol 202 H <130 - mg/dL * T riglycerides 615 H <150 - mg/dL * Moira Reyes 04/04/2025 11:1 1:14 AM EDT > See phone encounter ?LAB: P-TSH reflex to FT4 (Collection Date & Time - 04/02/2025 01:06 PM)? Normal* Value Reference Range T SH reflex to FT4 3.87 0.43-5.25 - mU/L * Moira Reyes 04/04/2025 11:1 1:14 AM EDT > See phone encounter 3.?Hypertriglyceridemia? Continue Fenofibrate Tablet, 145 MG, 1 tablet, Orally, Once a day.??4.?Primary insomnia? Continue traZODone HCl Tablet, 100 MG, 1 tablet at bedtime, Orally, Once a day.??5.?Anxiety disorder, unspecified? Continue Sertraline HCl Tablet, 25 MG, 1 tablet, Orally, Once a day.??6.?residential use of drug?LAB: CBC Venipuncture (in house) (Collection Date & Time - 04/02/2025)* Value Reference Range w bc 7.2 3.5 - 10 * l ymph 27.2% 15 - 50 * m id 6.4% 2 - 15 * g ran 66.4% 35 - 80 * r bc 4.90 3.5 - 5.5 * h gb 14.8 11.5 - 16.5 * h ct 43.7 35 - 55 * m cv 89.1 75 - 100 * m ch 30.2 25 - 35 * m chc 33.8 31 - 38 * p latlet 327 100 - 400 * Cha Mccartney 04/02/2025 02:50: 29 PM EDT > Provider reviewed results while patient in office. 7.?Personal history of nicotine dependence?Imaging: CT Scan : Chest, low dose (Performed Date - 04/19/2025)?bilateral nodules, nothing suspicious for cancer, recommend annual f/u* Eduarda Lyn 04/02/2025 02:2 0:13 PM EDT > no auth required; CPT code 92788; faxed to [facility] Cha Murphy 04/25/2025 04:48:29 PM EDT > Pt informed 8.?Screening for lung cancer?Imaging: CT Scan : Chest, low dose (Performed Date - 04/19/2025)?bilateral nodules, nothing suspicious for cancer, recommend annual f/u* Eduarda Lyn 04/02/2025 02:2 0:13 PM EDT > no auth required; CPT code 64530; faxed to [facility] Cha Murphy 04/25/2025 04:48:29 PM EDT > Pt informed * Procedure Codes: 8 5025 CBC WITH AUTO DIFF, G8420 BMI<30 AND >=22 CALC & DOCU, G8783 BP SCR PRFRM RCMDD DEFIND SCR INTVL, 3075F SYST BP GE 130 - 139MM HG, 3078F DIAST BP < 80 MM HG * Follow Up: 6 Months * Images: Billing Information: * Visit Code: 05346 Office Visit, New Pt., Level 4. * Procedure Codes: 39493 CBC WITH AUTO DIFF. G8420 BMI<30 AND >=22 CALC & DOCU. G8783 BP SCR PRFRM RCMDD DEFIND SCR INTVL. 3075F SYST BP GE 130 - 139MM HG. 3078F DIAST BP < 80 MM HG. * Electronic signature of Chelsea Talbot MD on 06/26/2025 at 12:58 PM EDT Sign off status: Pending * Provider: Carole Talbot M.D. Date: 0 04/02/2025 Generated for Bernadette acosta/Henrique/eTransmitting on: 1 12:58 PM EDT History and Physical Notes * HPI (History of Present Illness) Category Sub-Category Detail Notes Category Not es HPI Here for follow up on: 5 [facility] ER visit. Pt went to er for lt foot swelling and redness. Pt states swelling has improved but lt foot is still painful to walk on Patient is here today for Pt here to [facility]. Pt was previously seen by Dr. Alvarado Examination Category Sub-Category Detail Notes Category Not es General Examination HEENT: unremarkable Heart: RSR Lungs: clear to auscultatio n Extremities: no leg edema, left f oot exam is basically normal now, only trace edema of the middle 3 toes Skin: normal, no rash Neurologic Exam: Intact, gait normal Neck: supple, no lymphaden opathy Oral cavity: no lesions, mucosa m oist and WNL, no erythema Peripheral pulses: normal (2+) bilatera lly Psychology General Appearance: NAD Grooming : adequate Eye contact : normal Mood : pleasant
--- NOTE | 2025-06-26 12:56 | XR_ITS ---
FINAL REPORT CLINICAL HISTORY: left foot fx COMPARISON: 06/04/2025 FINDINGS: LEFT FOOT Three views of the left foot demonstrate no change in the chronic fracture of the base of the fifth metatarsal. No development of callus formation is seen. Bones are osteopenic. Soft tissues are unremarkable. IMPRESSION: No significant change in fracture at the base of the fifth metatarsal. Reviewed, Interpreted and Dictated by Yasmin Pierre MD Transcribed by Ruth Trotter Authenticated and [facility]
--- OUTSIDE RECORDS SUMMARY | 2025-06-26 12:58 | XMS_ITS | Patient Health Record ---
[facility] Organization [facility] Address [address] [place] [id number] Care Team Providers Care Casing In Line Feeder Name Role Phone Álvaro Talbot Unavailable [phone] Allergies No Known Allergies Results Component Value [...] Interpretation:Normal Performing Lab: Notes/Report: Test performed by [facility], [employer] [address] [place] [address] , [address], [place] [address] Eduard Montano MD, Business Development Engineer CLIA: [id number] Sodium 135 135-145 mmol/L Potassium 4.2 3.5-5.3 [...] 202 Performing Lab: Notes/Report: Test performed by [facility], [address] , [address], [place] [address] Eduard Montano MD, Business Development Engineer CLIA: [id number] Cholesterol 247 <200 mg/dL Triglycerides 615 <150 [...] Interpretation:Normal Performing Lab: Notes/Report: Test performed by [facility] [address] [place] [address] , [address], [place] [address] Eduard Montano MD, Business Development Engineer CLIA: [id number] TSH reflex to FT4 3.87 0.43-5.25 mU/L P-Uric Acid Reviewed date:04/04/2025 11:11:23 AM Interpretation:Normal Performing Lab: Notes/Report: Test performed by [facility] [address] [place] [address] , [address], [place] [address] Eduard Montano MD, Business Development Engineer CLIA: [id number] Uric Acid 6.4 2.4-7.0 mg/dL CT Scan : Chest, low dose Reviewed date:04/25/2025 04:48:45 PM Interpretation:bilateral nodules, nothing suspicious for cancer, recommend annual f/u Performing Lab: Notes/Report: bilateral nodules, nothing suspicious for cancer, recommend annual f/u Reason For Referral No Information Medications Medication SIG (Take, Route, Frequency, Duration) Notes Start Date End Date Status Sertraline HCl 25 MG 1 tablet Orally Once a day Active RABEprazole Sodium 20 MG 1 tablet 1/2 to 1 hour before a meal Orally Once a day Active traZODone HCl 100 MG 1 tablet at bedtime Orally Once a day Active Ezetimibe 10 MG 1 tablet Orally Once a day Active Fenofibrate 145 MG 1 tablet Orally Once a day Active Icosapent Ethyl 1 GM 2 capsules with malcolm ls Orally Twice a day; Duration: 30 days 04/06/2025 Active Ixekizumab 80 MG/ML 1 mL Subcutaneous Active Social History Tobacco Use: Social History Observation Description Date Details (start date - stop date) Current Smoker NA - NA CURRENT TOBACCO USE: Question Answer Notes Are you a: current every day smoker 1 PPD Problems Problem Type SNOMED Code ICD Code Onset Dates Problem Status W/U Status Risk Notes Problem Hypertriglyceridemia (802266883) Hypertriglyceridemia (E78.1) Active confirmed Problem Mixed hyperlipidemia (517104403) Mixed hyperlipidemia (E78.2) Active confirmed Problem Anxiety disorder (146647830) Anxiety disorder, unspecified (F41.9) Active confirmed Problem Primary insomnia (9988491) Primary insomnia (F51.01) Active confirmed Vital Signs Heart Rate 85 /min 04/02/2025 Blood pressure diastolic 78 mm Hg 04/02/2025 Height 66 in 04/02/2025 Blood pressure systolic 130 mm Hg 04/02/2025 Weight 157 lbs 04/02/2025 BMI 25.34 kg/m2 04/02/2025 Encounters Encounter Location Date Provider Diagnosis [facility] [address] [place], [place] [id number] 04/02/2025 Álvaro Isabella Pain in left foot M7 9.672 ; Mixed hyperlipidemia E78.2 ; Hypertriglyceridemia E78.1 ; Primary insomnia F51.01 ; Anxiety disorder, unspecified F41.9 ; Depression, unspecified F32.A ; [facility]CC use of drug Z79.899 ; Personal history of nicotine dependence Z87.891 ; Screening for lung cancer Z12.2 and BMI 25.0-25.9,adult Z68.25 [facility] [address] [facility] [address] [facility] [address] [place], [place] [id number] 04/04/2025 Álvaro Isabella [facility] [address] [facility] [address] [place], [place] [id number] 04/06/2025 Álvaro Isabella [facility] [address] [facility] [address] [facility] [address] [place], [place] [id number] 04/17/2025 Álvaro Isabella Encounter for screen ing for malignant neoplasm of breast Z12.31 Assessments Encounter Date Diagnosis (ICD Code) Assessment Notes Treatment Notes Treatment Clinical Notes Section Notes 04/17/2025 Encounter for screen ing for malignant neoplasm of breast (ICD-10 - Z12.31) 04/02/2025 Mixed hyperlipidemia (ICD-10 - E78.2) 04/02/2025 Pain in left foot (ICD-10 - M79.672) 04/02/2025 Hypertriglyceridemia (ICD-10 - E78.1) 04/02/2025 Primary insomnia (IC D-10 - F51.01) 04/02/2025 Anxiety disorder, unspecified (ICD-10 - F41.9) 04/02/2025 Depression, unspecif ied (ICD-10 - F32.A) 04/02/2025 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 (ICD-10 - Z79.899) 04/02/2025 Personal history of nicotine dependence (ICD-10 - Z87.891) 04/02/2025 Screening for lung cancer (ICD-10 - Z12.2) 04/02/2025 BMI 25.0-25.9,adult (ICD-10 - Z68.25) Plan Of Treatment Pending Test Test Name Order Date Mammogram 04/17/2025 Insurance Providers Payer Name Payer Address Payer Phone Subscriber Number Group Number Insured Name Patient Relationship to Insured Coverage Start Date Coverage End Date [facility] [address] [place] [address] [id number] Carmella Gresham Self - patient is the insured Medical (General) History Medical History History ICD Code Hyperlipidemia psoriasis Esophageal reflux Colon polyps peptic ulcer disease depression anxiety 30 pack year smoking history as of 2024
== END 2025-06-26 23:59 | disposition home or self-care (01) ==
LOC: RAD 12:55
PROVIDERS: PCP Family Medicine; Visit Provider Physician Assistant
DX: S92.355D Nondisplaced fracture of fifth metatarsal bone, left foot, subsequent encounter for fracture with routine healing (principal); M85.872 Other specified disorders of bone density and structure, left ankle and foot; X58.XXXD Exposure to other specified factors, subsequent encounter
CPT/HCPCS: 73630